=== PATIENT | male | born 1980 ===

== ENCOUNTER 2016-07-09 21:32 | Emergency (ER) | payer OTHER ==
[2016-07-09 21:33] VITALS: BMI 23.1
[2016-07-09 22:29] VITALS: TEMP 98
--- NOTE | 2016-07-09 23:25 | ED PDOC ---
Arrival/HPI - General Chief Complaint: Lower Extremity Problem/Injury Time Seen by Provider: 07/09/16 22:35 Historian: Patient - History of Present Illness Narrative History of Present Illness (Text): 07/09/16 23:18 Pt is a 36yo male who present with complaint of lateral right foot pain. states he had contusion injury at work two months ago. He was given NSAID during the injury and he had PT, and his pain improved. States he went back to work today and started having pain after standing for a while. He did not take any analgesic. Denies recent trauma, any other complaint. States he never had imaging of his foot. Past Medical History - Provider Review Nursing Documentation Reviewed: Yes - Infectious Disease Hx of Infectious Diseases: None - Tetanus Immunization Tetanus Immunization: Unknown - Psychiatric Hx Depression: No Hx Emotional Abuse: No Hx Physical Abuse: No Hx Substance Use: No - Surgical History Hx Cholecystectomy: Yes - Anesthesia Hx Anesthesia: Yes Hx Anesthesia Reactions: No Hx Malignant Hyperthermia: No - Suicidal Assessment Feels Threatened In Home Enviroment: No Family/Social History - Physician Review Nursing Documentation Reviewed: Yes Family/Social History: Unknown Family HX Smoking Status: Never Smoked Hx Alcohol Use: No Hx Substance Use: No Allergies/Home Meds Allergies/Adverse Reactions: Allergies No Known Allergies Allergy (Verified 07/09/16 22:29) Review of Systems - Physician Review All systems were reviewed & negative as marked: Yes - Review of Systems Constitutional: Normal Eyes: Normal ENT: Normal Respiratory: Normal Cardiovascular: Normal Gastrointestinal: Normal Genitourinary Male: Normal Musculoskeletal: Arthralgias (right foot pain) Skin: Normal Neurological: Normal Endocrine: Normal Hemo/Lymphatic: Normal Psychiatric: Normal Physical Exam Vital Signs Reviewed: Yes Vital Signs Temp Pulse Resp BP Pulse Ox 07/10/16 00:35 60 17 101/63 96 07/09/16 22:24 98 F 85 20 122/84 98 Temperature: Afebrile Blood Pressure: Normal Pulse: Regular Respiratory Rate: Normal Appearance: Positive for: Well-Appearing, Non-Toxic, Comfortable Pain Distress: None Mental Status: Positive for: Alert and Oriented X 3 - Systems Exam Head: Present: Atraumatic, Normocephalic Pupils: Present: PERRL Extroacular Muscles: Present: EOMI Conjunctiva: Present: Normal Mouth: Present: Moist Mucous Membranes Neck: Present: Normal Range of Motion Respiratory/Chest: Present: Clear to Auscultation, Good Air Exchange. No: Respiratory Distress, Accessory Muscle Use Cardiovascular: Present: Regular Rate and Rhythm, Normal S1, S2. No: Murmurs Abdomen: Present: Normal Bowel Sounds. No: Tenderness, Distention, Peritoneal Signs Back: Present: Normal Inspection Upper Extremity: Present: Normal Inspection. No: Cyanosis, Edema Lower Extremity: Present: NORMAL PULSES, Normal ROM, Tenderness (Focal tenderness over lateral right foot), Neurovascularly Intact. No: Edema, CALF TENDERNESS, Cyanosis, Swelling, Erythema, Deformity, Temperature Abnormalties Neurological: Present: GCS=15, CN II-XII Intact, Speech Normal Skin: Present: Warm, Dry, Normal Color. No: Rashes Psychiatric: Present: Alert, Oriented x 3, Normal Insight, Normal Concentration Medical Decision Making ED Course and Treatment: 07/10/16 01:28 Right foot xray - No acute finding Result was DW the pt. DC home with Naprosyn. 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 - RAD Interpretation Radiology Orders: 07/09/16 22:35 FOOT RIGHT 3 VIEWS ROUTINE [RAD] Stat - Medication Orders Current Medication Orders: Discontinued Medications Ketorolac Tromethamine (Toradol) 60 mg IM STAT STA Stop: 07/09/16 23:27 Last Admin: 07/09/16 23:58 Dose: 60 MG IM Administration Charges Document 07/09/16 23:58 MR (Rec: 07/09/16 23:58 [place] [facility] [id number] Injection Site MAR Injection Site Left Gluteus Hill Charges for Administration # of IM Administrations 1 Disposition/Present on Arrival - Present on Arrival Any Indicators Present on Arrival: No History of DVT/PE: No History of Uncontrolled Diabetes: No Urinary Catheter: No History of Decub. Ulcer: No History Surgical Site Infection Following: None - Disposition Have Diagnosis and Disposition been Completed?: Yes Diagnosis: Foot pain Disposition: HOME/ ROUTINE Disposition Time: 23:34 Patient Plan: Discharge Condition: STABLE Discharge Instructions (ExitCare): Arthralgia (ED) Additional Instructions: Follow up with your doctor/Payable Manager Return to ED for any new or worsening symptoms Prescriptions: Naproxen [Naprosyn] 500 mg PO BID #20 tab Referrals: Lou Melendez DPM [Staff Provider] - Follow up with primary Forms: WORK NOTE
[2016-07-10 00:36] VITALS: BP 101/63; PULSE 60; RESP 17; O2SAT 96
--- NOTE | 2016-07-10 10:29 | RAD ---
PROCEDURE: Right Foot Radiographs. HISTORY: foot pain COMPARISON: None. FINDINGS: BONES: Normal. No fracture. JOINTS: Normal. SOFT TISSUES: Normal. OTHER FINDINGS: None. IMPRESSION: Normal right foot radiographs.
== END 2016-07-10 00:36 | disposition home or self-care (01) ==
LOC: ED 21:32
DX: M79.671 Pain in right foot (principal)
CPT/HCPCS: 73630; 96372; 99284; J1885

== ENCOUNTER 2016-09-03 09:30 | Emergency (ER) | payer OTHER ==
[2016-09-03 09:38] VITALS: BMI 24.0
[2016-09-03 09:40] VITALS: TEMP 99.6; O2SAT 96
--- NOTE | 2016-09-03 10:09 | ED PDOC ---
Arrival/HPI - General Chief Complaint: Cough, Cold, Congestion Time Seen by Provider: 09/03/16 10:04 Historian: Patient - History of Present Illness Narrative History of Present Illness (Text): 09/03/16 10:06 36yr old male presents today with a 3 day history of fever and chills and a 1 day history of sore throat. denies cough. denies abdominal pain. no vomiting or diarrhea. pt states he is able to tolerate liquids but has pain with swallowing solids. pt states he took naproxen this morning for pain. no cp or sob. denies sick contacts. no other complaints. Time/Duration: Other (3 days) Symptom Onset: Gradual Symptom Course: Worsening Quality: Stabbing, Burning Severity Level: 6 Past Medical History - Provider Review Nursing Documentation Reviewed: Yes - Travel History Have you recently traveled outside [place] w/in the past 3 mons?: No - Infectious Disease Hx of Infectious Diseases: None - Tetanus Immunization Tetanus Immunization: Unknown - Psychiatric Hx Depression: No Hx Emotional Abuse: No Hx Physical Abuse: No Hx Substance Use: No - Surgical History Hx Cholecystectomy: Yes - Anesthesia Hx Anesthesia: Yes Hx Anesthesia Reactions: No Hx Malignant Hyperthermia: No - Suicidal Assessment Feels Threatened In Home Enviroment: No Family/Social History - Physician Review Nursing Documentation Reviewed: Yes Family/Social History: Unknown Family HX Smoking Status: Never Smoked Hx Alcohol Use: No Hx Substance Use: No Allergies/Home Meds Allergies/Adverse Reactions: Allergies No Known Allergies Allergy (Verified 09/03/16 09:37) Review of Systems - Review of Systems Constitutional: Fevers. absent: Fatigue ENT: Sore Throat, Sinus Congestion Respiratory: absent: SOB, Cough Cardiovascular: absent: Chest Pain, Palpitations Gastrointestinal: absent: Abdominal Pain, Diarrhea, Vomiting, Appetite Changes Genitourinary Male: absent: Dysuria, Frequency Musculoskeletal: absent: Arthralgias, Back Pain Skin: absent: Rash, Pruritis Neurological: absent: Headache, Dizziness Psychiatric: absent: Anxiety, Depression Physical Exam Vital Signs Reviewed: Yes Vital Signs Temp Pulse Resp BP Pulse Ox 09/03/16 09:39 99.6 F 107 H 19 115/71 96 Temperature: Afebrile Blood Pressure: Normal Pulse: Tachycardic Respiratory Rate: Normal Appearance: Positive for: Well-Appearing, Non-Toxic, Comfortable Pain Distress: None Mental Status: Positive for: Alert and Oriented X 3 - Systems Exam Head: Present: Atraumatic Conjunctiva: Present: Normal Ears: Present: Normal, NORMAL TM Mouth: Present: Moist Mucous Membranes Pharnyx: Present: ERYTHEMA, TONSILS ENLARGED. No: EXUDATE, Peritonsilar Swelling, Uvular Deviation, Muffled/Hoarse Voice, Strider, Soft Palate/Uvular Edema Nose (External): Present: Atraumatic Nose (Internal): Present: Normal Inspection Neck: Present: Normal Range of Motion. No: Lymphadenopathy Respiratory/Chest: Present: Clear to Auscultation, Good Air Exchange. No: Respiratory Distress, Accessory Muscle Use Cardiovascular: Present: Regular Rate and Rhythm, Normal S1, S2. No: Murmurs Neurological: Present: GCS=15, Speech Normal Skin: Present: Warm, Dry, Normal Color. No: Rashes Psychiatric: Present: Alert, Oriented x 3 Medical Decision Making ED Course and Treatment: 09/03/16 10:13 Patient is nontoxic well appearing in no distress. Vital signs are stable Tolerating p.o. fluids and solids tylenol 975mg po amoxicillin PO Decadron 10 mg IM Patient reassessment: Patient feeling better after medications, vital signs stable. Moist mucous membranes. I advised follow up with primary care physician within the next 2 days, advised to increase fluids take medications as prescribed and return if symptoms worsen persist or if new symptoms develop IMPRESSION; pharyngitis Motrin every 6 hours as needed for pain/fever reduction Increase fluids Amoxicillin 3 times daily x10 days Follow up primary care physician within the next 2 days Follow up with the ENT specialist within the next 2 days. Saltwater gargles, throat lozenges Return if symptoms worsen persist or if the symptoms develop; high fevers, increasing pain, swelling, difficulty breathing or swallowing or if any other concerning symptoms develop. - Medication Orders Current Medication Orders: Discontinued Medications Acetaminophen (Tylenol 325mg Tab) 975 mg PO STAT STA Stop: 09/03/16 10:05 Last Admin: 09/03/16 10:11 Dose: 975 mg Amoxicillin (Amoxil 500 Mg Cap) 500 mg PO STAT STA PRN Reason: Protocol Stop: 09/03/16 10:05 Last Admin: 09/03/16 10:10 Dose: 500 mg Dexamethasone (Decadron Inj) 10 mg IM STAT STA Stop: 09/03/16 10:05 Disposition/Present on Arrival - Present on Arrival Any Indicators Present on Arrival: No History of DVT/PE: No History of Uncontrolled Diabetes: No Urinary Catheter: No History of Decub. Ulcer: No History Surgical Site Infection Following: None - Disposition Have Diagnosis and Disposition been Completed?: Yes Diagnosis: Pharyngitis Disposition: HOME/ ROUTINE Disposition Time: 10:12 Patient Plan: Discharge Patient Problems: Current Active Problems Problem Status Onset Pharyngitis Acute Condition: GOOD Discharge Instructions (ExitCare): Pharyngitis (ED) Additional Instructions: Motrin every 6 hours as needed for pain/fever reduction Increase fluids Amoxicillin 3 times daily x10 days Follow up primary care physician within the next 2 days Follow up with the ENT specialist within the next 2 days. Saltwater gargles, throat lozenges Return if symptoms worsen persist or if the symptoms develop; high fevers, increasing pain, swelling, difficulty breathing or swallowing or if any other concerning symptoms develop. Prescriptions: Amoxicillin 500 mg PO TID #30 tab Ibuprofen [Motrin] 600 mg PO Q6H PRN #20 tab PRN Reason: pain/fever reduction Referrals: Adalberto Marin DO [Doctor Osteopathy] - Follow up with primary Campbell Todd MD [Staff Provider] - Follow up with primary [facility] [place] - Follow up with primary Forms: WORK NOTE
[2016-09-03 11:08] VITALS: BP 117/68; PULSE 97; RESP 18
== END 2016-09-03 11:35 | disposition home or self-care (01) ==
LOC: ED 09:30
DX: J02.9 Acute pharyngitis, unspecified (principal)
CPT/HCPCS: 96372; 99283; J1100

== ENCOUNTER 2016-10-22 09:20 | Inpatient (IN) | payer OTHER ==
[2016-10-22 09:23] VITALS: BMI 23.6
[2016-10-22] MEDS ORDERED: Sodium Chloride 0.9% 1,000 ML IV STA ×2 (09:43→10:32)
--- NOTE | 2016-10-22 09:47 | ED PDOC ---
Arrival/HPI - General Historian: Patient - History of Present Illness Time/Duration: Other (3 days) Quality: Aching Severity Level: Mild Context: Home - General Chief Complaint: Abdominal Pain Time Seen by Provider: 10/22/16 09:31 - History of Present Illness Narrative History of Present Illness (Text): 10/22/16 09:44 This 36 yo male presents to this ED c/o nausea, diarrhea, and generalized abdominal pain x 3 days. Patient also stated chills, and fever. Patient saw his pmd x 2 days ago, who recommended him to take Immodium, and to drink enough fluids. Patient has been taking Advil for pain, and Lamar, and Gatorade drinks. Denies sob, vomiting, rash, rectal bleeding, melena, hematochezia, dizziness, or abnormal gait. (Melvina Richter) Past Medical History - Provider Review Nursing Documentation Reviewed: Yes - Infectious Disease Hx of Infectious Diseases: None - Tetanus Immunization Tetanus Immunization: Unknown - Psychiatric Hx Depression: No Hx Emotional Abuse: No Hx Physical Abuse: No Hx Substance Use: No - Surgical History Hx Cholecystectomy: Yes - Anesthesia Hx Anesthesia: Yes Hx Anesthesia Reactions: No Hx Malignant Hyperthermia: No - Suicidal Assessment Feels Threatened In Home Enviroment: No Family/Social History - Physician Review Nursing Documentation Reviewed: Yes Family/Social History: No Known Family HX Smoking Status: Never Smoked Hx Alcohol Use: No Hx Substance Use: No Allergies/Home Meds Allergies/Adverse Reactions: Allergies No Known Allergies Allergy (Verified 10/22/16 09:23) Home Medications: Home Meds Medication Instructions Recorded Confirmed No Known Home Med 10/22/16 10/22/16 Review of Systems - Review of Systems Constitutional: Fevers, Other (chills). absent: Fatigue, Weight Change, Night Sweats Eyes: Normal. absent: Vision Changes ENT: Normal Respiratory: Normal. absent: SOB, Cough Cardiovascular: Normal. absent: Chest Pain, Palpitations Gastrointestinal: Normal, Abdominal Pain, Diarrhea, Nausea. absent: Constipation, Vomiting Genitourinary Male: Normal. absent: Dysuria, Frequency, Hematuria Musculoskeletal: Normal. absent: Back Pain, Neck Pain Skin: Normal. absent: Rash Neurological: Normal. absent: Headache, Dizziness Endocrine: Normal Hemo/Lymphatic: Normal Psychiatric: Normal Physical Exam Temperature: Afebrile Blood Pressure: Normal Pulse: Regular Respiratory Rate: Normal Appearance: Positive for: Well-Appearing, Non-Toxic, Comfortable Pain Distress: None Mental Status: Positive for: Alert and Oriented X 3 - Systems Exam Head: Present: Atraumatic, Normocephalic Pupils: Present: PERRL Extroacular Muscles: Present: EOMI Conjunctiva: Present: Normal Mouth: Present: Moist Mucous Membranes Neck: Present: Normal Range of Motion, Trachea Midline. No: Meningeal Signs, MIDLINE TENDERNESS, Paraspinal Tenderness, Lymphadenopathy Respiratory/Chest: Present: Clear to Auscultation, Good Air Exchange. No: Respiratory Distress, Accessory Muscle Use Cardiovascular: Present: Regular Rate and Rhythm, Normal S1, S2. No: Murmurs Abdomen: No: Tenderness, Distention, Normal Bowel Sounds (mild hyper active BS) , Peritoneal Signs, Rebound, Guarding Back: Present: Normal Inspection. No: CVA Tenderness Upper Extremity: Present: Normal Inspection, Normal ROM, NORMAL PULSES, Neurovascularly Intact, Capillary Refill < 2s. No: Cyanosis, Edema Lower Extremity: Present: Normal Inspection, NORMAL PULSES, Normal ROM, Neurovascularly Intact, Capillary Refill < 2 s. No: Edema, CALF TENDERNESS Neurological: Present: GCS=15, CN II-XII Intact, Speech Normal, Motor Func Grossly Intact, Normal Sensory Function, Normal Cerebellar Funct, Norm Deep Tendon Reflexes, Gait Normal, Memory Normal Skin: Present: Warm, Dry, Normal Color. No: Rashes Psychiatric: Present: Alert, Oriented x 3, Normal Insight, Normal Concentration Vital Signs Temp Pulse Resp BP Pulse Ox 10/22/16 15:09 66 17 112/61 99 10/22/16 14:18 76 15 105/60 99 10/22/16 12:48 63 14 108/71 99 10/22/16 12:00 76 17 117/80 99 10/22/16 10:45 78 18 115/86 98 10/22/16 09:25 97.7 F 81 19 111/72 97 Medical Decision Making Re-evaluation Time: 13:09 Reassessment Condition: Re-examined, Improving,but remains with symptoms - Lab Interpretations I have reviewed the lab results: Yes Interpretation: Abnormal lab values (bandemia) - EKG Interpretation Interpreted by ED Physician: Yes (NSR @63 bpm. Normal interval) Type: 12 lead EKG Comparison: No previous EKG avail. ED Course and Treatment: I was available for consultation during PA evaluation. The chart was reviewed by me, and I agree with disposition. The documented history was done by the physician optical lens manufacturing tech. The documented physical exam was done by the physician optical lens manufacturing tech. The documented procedures were done by the physician optical lens manufacturing tech. (Merlin Taylor) 10/22/16 13:08 Patient continues with intractable abdominal pain. I am recommending admission for extensive colitis, abnormal labs, and intractable abdominal pain. Patient agrees with plan. 10/22/16 13:[address] Valles regarding labs, and ct scan report, and intractable abdominal pain. She agrees with admission (Melvina Richter) - Lab Interpretations Microbiology Results: Microbiology Results 10/22/16 12:30 Blood Blood Culture - Preliminary NO GROWTH AFTER 24 HOURS 10/22/16 13:00 Blood Blood Culture - Preliminary NO GROWTH AFTER 24 HOURS Lab Results: 10/22/16 09:57 10/22/16 09:57 Lab Results 10/22/16 13:00: pO2 135 H, VBG pH 7.37, VBG pCO2 39.0 L, VBG HCO3 22.5, VBG Total CO2 23.7, VBG O2 Sat (Calc) 99.3 H, VBG Base Excess -2.5 L, VBG Potassium 3.7, Glucose 98, Lactate 0.6 L, FiO2 21.0, Sodium 136.0, Chloride 109.0 H, Venous Blood Potassium 3.7 10/22/16 09:57: Sodium 139, Potassium 3.7, Chloride 105, Carbon Dioxide 23, Anion Gap 15, BUN 11, Creatinine 0.9, Est GFR ( Amer) > 60, Est GFR (Non- Af Amer) > 60, Random Glucose 106, Calcium 9.2, Total Bilirubin 0.8, AST 49, ALT 66 H, Alkaline Phosphatase 91, Total Protein 7.2, Albumin 3.8, Globulin 3.4 , Albumin/Globulin Ratio 1.1, Lipase 49 10/22/16 09:57: WBC 5.9, RBC 4.88, Hgb 14.8, Hct 42.6, MCV 87.3, MCH 30.3, MCHC 34.7, RDW 12.9, Plt Count 204, MPV 10.2, Gran % Glue Mounter Operator, Lymph % (Auto) Glue Mounter Operator, Dukes % ( Auto) Glue Mounter Operator, Eos % (Auto) Glue Mounter Operator, Baso % (Auto) Glue Mounter Operator, Gran # Glue Mounter Operator, Lymph # Glue Mounter Operator, Dukes # Glue Mounter Operator, Eos # Glue Mounter Operator, Baso # Glue Mounter Operator, Neutrophils % (Manual) 49 L, Band Neutrophils % 26 H*, Lymphocytes % (Manual) 17 L, Monocytes % (Manual) 8 H, Platelet Evaluation Normal - RAD Interpretation Radiology Orders: 10/22/16 11:26 ABD & PELVIS IV CONTRAST ONLY [CT] Stat 10/22/16 13:58 CHEST PORTABLE [RAD] Stat - Medication Orders Current Medication Orders: Hydromorphone HCl (Dilaudid) 1 mg IVP Q4H PRN PRN Reason: Pain, severe (8-10) Metronidazole (Flagyl) 500 mg in 100 mls @ 100 mls/hr IVPB Q8 ERYN PRN Reason: Protocol Last Admin: 10/23/16 14:40 Dose: 100 mls/hr Sodium Chloride (Sodium Chloride 0.9%) 1,000 mls @ 125 mls/hr IV .Q8H [facility] Last Admin: 10/23/16 14:37 Dose: 125 mls/hr Ceftriaxone Sodium (Rocephin 1 Gram Ivpb) 1 gm in 100 mls @ 100 mls/hr IVPB DAILY [facility] PRN Reason: Protocol Stop: 10/25/16 23:59 Last Admin: 10/23/16 09:24 Dose: 100 mls/hr Ondansetron HCl (Zofran Inj) 4 mg IVP Q4 PRN PRN Reason: Nausea/Vomiting Pantoprazole Sodium (Protonix Ec Tab) 40 mg PO 0600 ERYN Last Admin: 10/23/16 05:08 Dose: 40 mg Simethicone (Mylicon Chew Tab) 80 mg PO [facility] PRN PRN Reason: GI distress Last Admin: 10/23/16 17:29 Dose: 80 mg Discontinued Medications Famotidine (Pepcid) 20 mg IVP STAT STA Stop: 10/22/16 09:44 Last Admin: 10/22/16 09:56 Dose: 20 mg Hydromorphone HCl (Dilaudid) 1 mg IVP STAT STA Stop: 10/22/16 13:07 Last Admin: 10/22/16 14:19 Dose: 1 mg Hydromorphone HCl (Dilaudid) 1 mg IVP STAT STA Stop: 10/23/16 17:23 Last Admin: 10/23/16 17:26 Dose: 1 mg Sodium Chloride (Sodium Chloride 0.9%) 1,000 mls @ 1,000 mls/hr IV .Q1H STA Stop: 10/22/16 10:42 Last Admin: 10/22/16 09:57 Dose: 1,000 mls/hr Sodium Chloride (Sodium Chloride 0.9%) 1,000 mls @ 999 mls/hr IV .Q1H1M STA Stop: 10/22/16 11:32 Last Admin: 10/22/16 10:40 Dose: 999 mls/hr Ciprofloxacin (Cipro 400mg/200ml Dsw) 400 mg in 200 mls @ 133.3 mls/hr IVPB STAT STA PRN Reason: Protocol Stop: 10/22/16 14:37 Last Admin: 10/22/16 15:23 Dose: 133.3 mls/hr Metronidazole (Flagyl) 500 mg in 100 mls @ 100 mls/hr IVPB STAT STA PRN Reason: Protocol Stop: 10/22/16 14:06 Last Admin: 10/22/16 14:21 Dose: 100 mls/hr Ciprofloxacin (Cipro 400mg/200ml Dsw) 400 mg in 200 mls @ 133.3 mls/hr IVPB Q12 ERYN PRN Reason: Protocol Stop: 10/22/16 23:31 Last Admin: 10/22/16 21:12 Dose: 133.3 mls/hr Iohexol (Omnipaque 350 100 Ml) Confirm Administered Dose 350 mg .ROUTE .STK-MED ONE Stop: 10/22/16 11:38 Morphine Sulfate (Morphine) 2 mg IVP STAT STA Stop: 10/22/16 10:33 Last Admin: 10/22/16 10:48 Dose: 2 mg Morphine Sulfate (Morphine) 4 mg IVP STAT STA Stop: 10/22/16 12:31 Last Admin: 10/22/16 12:49 Dose: 4 mg Morphine Sulfate (Morphine) 2 mg IVP Q4 PRN PRN Reason: Pain, severe (8-10) Last Admin: 10/23/16 14:32 Dose: 2 mg Morphine Sulfate (Morphine) 1 mg IVP STAT STA Stop: 10/22/16 20:47 Last Admin: 10/22/16 21:12 Dose: 1 mg Re-Assess: [facility] Pain Assessment Document 10/22/16 22:12 BN (Rec: 10/22/16 23:05 BN [email or web address]) Pain Reassessment Is this a pain reassessment? Yes Sleep Is patient sleeping during reassessment? Yes Morphine Sulfate (Morphine) 2 mg IVP ONCE ONE Stop: 10/23/16 11:03 Last Admin: 10/23/16 11:07 Dose: 2 mg Re-Assess: [facility] Pain Assessment Document 10/23/16 12:07 MLK (Rec: 10/23/16 12:20 [id number]) Pain Reassessment Is this a pain reassessment? Yes Sleep Is patient sleeping during reassessment? Yes Ondansetron HCl (Zofran Inj) 4 mg IVP STAT STA Stop: 10/22/16 09:44 Last Admin: 10/22/16 09:56 Dose: 4 mg Pneumococcal Polyvalent Vaccine (Pneumovax 23 Vaccine) 0.5 ml IM .ONCE ONE Stop: 10/22/16 18:40 Disposition/Present on Arrival - Present on Arrival Any Indicators Present on Arrival: No History of DVT/PE: No History of Uncontrolled Diabetes: No Urinary Catheter: No History of Decub. Ulcer: No History Surgical Site Infection Following: None - Disposition Have Diagnosis and Disposition been Completed?: Yes Disposition Time: 13:10 Patient Plan: Admission - Disposition Diagnosis: Pancolitis, Bandemia, Intractable abdominal pain Disposition: HOSPITALIZED Patient Problems: Current Active Problems Problem Status Onset Bandemia Acute Intractable abdominal pain Acute Pancolitis Acute Condition: GOOD
[2016-10-22 10:12] LABS: HEMOGLOBIN 14.8 gm/dL (14.0-18.0); MEAN CELL VOLUME 87.3 fL (80.0-105.0); MEAN CORPUSCULAR HEMOGLOBIN 30.3 pg (25.0-35.0); MEAN CORPUSCULAR HGB CONC 34.7 g/dl (31.0-37.0); MEAN PLATELET VOLUME 10.2 fl (7.0-11.0); PLATELET COUNT 204 10^3/uL (120.0-450.0); RBC 4.88 10^6/uL (3.5-6.1); RED CELL DISTRIBUTION WIDTH 12.9 % (11.5-14.5); WHITE BLOOD COUNT 5.9 10^3/ul (4.5-11.0)
[2016-10-22 10:13] LABS: ALB/GLOB RATIO 1.1 (1.1-1.8); ALBUMIN 3.8 g/dL (3.0-4.8); ALT/SGPT 66 U/L (7-56); AST/SGOT 49 U/L (15-59); BLOOD UREA NITROGEN 11 mg/dL (7-21); CALCIUM 9.2 mg/dL (8.4-10.5); GFR AFRICAN-AMERICAN > 60; GFR NON-AFRICAN AMERICAN > 60; LIPASE 49 U/L (23-300)
[2016-10-22] MEDS ORDERED: Morphine 2 mg/ml ISec IVP STA ×2 (10:32→20:46)
[2016-10-22] MEDS ORDERED: Iohexol 350 MG/100 ML VIAL ONE (11:37)
[2016-10-22 12:08] LABS: LYMPHOCYTE 17 % (22.0-35.0); MONOCYTE 8 % (1.0-6.0); NEUTROPHIL 49 % (50.0-70.0); PLATELET ESTIMATE NORMAL (NORMAL)
[2016-10-22 12:09] LABS: BAND 26 % (0-2)
[2016-10-22] MEDS ORDERED: Morphine 4 mg/ml ISec IVP STA (12:30)
--- NOTE | 2016-10-22 12:38 | CT ---
PROCEDURE: CT Abdomen and Pelvis with contrast HISTORY: el-umbilical abdominal pain COMPARISON: None. TECHNIQUE: Contrast dose: Omnipaque 350, 97 Radiation dose: Total exam DLP = 289 mGy-cm. This CT exam was performed using one or more of the following dose reduction techniques: Automated exposure control, adjustment of the mA and/or kV according to patient size, and/or use of iterative reconstruction technique. FINDINGS: LOWER THORAX: Unremarkable. LIVER: Unremarkable. Mild periportal edema noted. No gross lesion or ductal dilatation. GALLBLADDER AND BILE DUCTS: Prior cholecystectomy again evident without suspicious biliary tract dilatation. Mild periportal edema is identified in the liver however. . PANCREAS: Unremarkable. No gross lesion or ductal dilatation. SPLEEN: Unremarkable. ADRENALS: Unremarkable. No mass. KIDNEYS AND URETERS: Unremarkable. No hydronephrosis. No solid mass. VASCULATURE: Unremarkable. No aortic aneurysm. BOWEL: There is marked mural thickening of the cecum and ascending colon with [id number] pericecal lymphadenopathy but a normal appearing terminal ileum and appendix. Mural thickening continues into the transverse and descending colon segments questionable sparing of the sigmoid colon. Retained fecal multi material obscures the rectum. The findings are most by with extensive segmental colitis. Consider infectious or inflammatory causes though ischemia and neoplasm not completely excluded. Further clinical correlation is advised. . No obstruction. Small bowel appears unremarkable. APPENDIX: Normal appendix. PERITONEUM: Unremarkable. No free fluid. No free air. LYMPH NODES: Unremarkable. No enlarged lymph nodes. BLADDER: Unremarkable. REPRODUCTIVE: Unremarkable. BONES: No acute fracture. OTHER FINDINGS: None. IMPRESSION: 1. Findings suggestive of extensive segmental colitis affecting the majority colon but apparent sparing of the rectosigmoid segment. Please see differential diagnosis above. No abscess or free air. Trace fluid is seen in the pelvis. 2. Prior cholecystectomy. 3. Periportal edema identified.
[2016-10-22] MEDS ORDERED: HYDROmorphone 1 mg/ml ISec IVP STA (13:06)
[2016-10-22] MEDS ORDERED: Ciprofloxacin 400mg/200ml D5W 400 MG/200 ML BAG IVPB STA (13:07)
[2016-10-22] MEDS ORDERED: metroNIDAZOLE IV 500 mg/100 ml 500 MG/100 ML BAG IVPB STA (13:07)
[2016-10-22 13:22] LABS: VENOUS BLOOD GAS BASE EXCESS -2.5 mmol/L (0.0-2.0); VENOUS BLOOD GAS PO2 135 mm/Hg (30-55); VENOUS BLOOD PH 7.37 (7.32-7.43)
[2016-10-22 14:56] LABS: INR 1.11 (0.93-1.08); PARTIAL THROMBOPLASTIN TIME 34.1 Seconds (23.7-30.8)
--- NOTE | 2016-10-22 15:24 | RAD ---
HISTORY: admission COMPARISON: No prior. FINDINGS: LUNGS: No active pulmonary disease. PLEURA: No significant pleural effusion identified, no pneumothorax apparent. CARDIOVASCULAR: Normal. OSSEOUS STRUCTURES: No significant abnormalities. VISUALIZED UPPER ABDOMEN: Normal. OTHER FINDINGS: None. IMPRESSION: No active disease.
[2016-10-22] MEDS: Sodium Chloride 0.9% 1,000 ML IV SCH (17:03)
[2016-10-22] MEDS ORDERED: Pneumococcal 23-Valent Vaccine IM ONE (18:39)
[2016-10-22] MEDS: Morphine 2 mg/ml ISec IVP PRN (19:51)
--- NOTE | 2016-10-22 20:45 | CP.PCM.HP ---
History of Present Illness - History of Present Illness History of Present Illness: Chief Complaint: abdominal pain with associated diarrhea for three days HPI: Mr. Hill is a 36 year old male with no significant past medical history presented with fever, nausea, diarrhea, and generalized abdominal pain with a duration of three days. Patient describes pain as being localized el- umbilically with minimal tenderness in LLQ. Patient also stated that he experienced fever, with a Tmax of 103 on Wednesday evening, and sporadic chills. Patient saw his primary care physician two days ago who recommended he take immodium and have adequate fluid intake to maintain hydration status. Patient has been taking Advil and roberto at home for pain. He denies recent travel, dizziness, changes in vision, chest pain, shortness of breath, vomiting , hematochezia, melena, rectal bleeding, rash, or abnormal gait. PMH: none PSHX: Cholecsytectomy ("10 years ago") Family History: No history of any cancers; both parents with DM Medications: None Social History: Denies tobacco, alcohol or elicit drug use; works in [employer] at [employer] Present on Admission - Present on Admission Any Indicators Present on Admission: No Review of Systems - Review of Systems Review of Systems: refer to HPI Past Patient History - Infectious Disease Hx of Infectious Diseases: None - Tetanus Immunizations Tetanus Immunization: Unknown - Past Social History Smoking Status: Never Smoked - MUSCULOSKELETAL/RHEUMATOLOGICAL Hx Falls: No - PSYCHIATRIC Hx Substance Use: No - SURGICAL HISTORY Hx Amputation: Yes Hx Cholecystectomy: Yes (10 yrs ago) Other/Comment: left 4th finger partial amputation work related 20 yrs ago - ANESTHESIA Hx Anesthesia: Yes Hx Anesthesia Reactions: No Hx Malignant Hyperthermia: No Meds Allergies/Adverse Reactions: Allergies Allergy/AdvReac Type Severity Reaction Status Date / Time No Known Allergies Allergy Verified 10/22/16 09:23 Physical Exam - Constitutional Appears: No Acute Distress - Head Exam Head Exam: NORMAL INSPECTION, NORMOCEPHALIC - Eye Exam Eye Exam: EOMI, Normal appearance. absent: Conjunctival injection, Periorbital swelling - ENT Exam ENT Exam: Mucous Membranes Dry. absent: Mucous Membranes Moist, Normal Exam - Neck Exam Neck exam: Positive for: Full Rom. Negative for: Lymphadenopathy - Respiratory Exam Respiratory Exam: Clear to Auscultation Bilateral, NORMAL BREATHING PATTERN. absent: Rales, Rhonchi, Wheezes, Respiratory Distress, Stridor - Cardiovascular Exam Cardiovascular Exam: REGULAR RHYTHM, RRR, +S1, +S2. absent: Bradycardia, Tachycardia, Irregular Rhythm, Systolic Murmur - GI/Abdominal Exam GI & Abdominal Exam: Normal Bowel Sounds, Tenderness. absent: Distended, Firm, Guarding Additional comments: periumbilical and LLQ TTP - Extremities Exam Extremities exam: Negative for: calf tenderness, pedal edema - Neurological Exam Neurological exam: Alert, Oriented x3 - Psychiatric Exam Psychiatric exam: Normal Affect, Normal Mood - Skin Skin Exam: Dry, Intact, Normal Color, Warm Results - Vital Signs Recent Vital Signs: Last Vital Signs Temp 97.7 F 10/22/16 16:00 Pulse 66 10/22/16 18:28 Resp 17 10/22/16 18:28 BP 112/61 10/22/16 18:28 Pulse Ox 98 10/22/16 16:00 - Labs Result Diagrams: 10/22/16 09:57 10/22/16 09:57 Labs: Laboratory Results - last 24 hr 10/22/16 14:40 PT 12.0 H INR 1.11 H APTT 34.1 H Assessment & Plan - Assessment and Plan (Free Text) Assessment: Mr. Hill is a 36 year old male with no significant past medical history presented with fever, nausea, diarrhea, and generalized abdominal pain with a duration of three days. Plan: 1. Extensive Segmental Colitis -CT abd/pelv showed findings suggestive of extensive segmental colitis affecting majority of colon but sparing rectosigmoid segment; consider infectious or inflammatory though ischemia and malignancy cannot be ruled out -started on cipro/flagyl -IVF: NS at 125mls/hr -morphine for pain control -pepcid, zofran, protonix -NPO diet -freedmna stool cultures collected; awaiting results -will monitor vital signs, daily CBC/CMP's -GI consulted, all recommendations appreciated 2. GI/DVT Prophylaxis -protonix/scd's Patient seen and case discussed in detail with attending, Dr. Bailey. - Date & Time Date: 10/22/16 Time: 20:57
[2016-10-22] MEDS ORDERED: Ciprofloxacin 400mg/200ml D5W 400 MG/200 ML BAG IVPB SCH (22:00)
[2016-10-22] MEDS: metroNIDAZOLE IV 500 mg/100 ml 500 MG/100 ML BAG IVPB SCH (23:04)
[2016-10-23] MEDS: Morphine 2 mg/ml ISec IVP PRN ×4 (02:51→14:32)
[2016-10-23] MEDS: Sodium Chloride 0.9% 1,000 ML IV SCH ×4 (03:41→23:37)
[2016-10-23] MEDS: metroNIDAZOLE IV 500 mg/100 ml 500 MG/100 ML BAG IVPB SCH ×3 (05:07→21:45)
[2016-10-23] MEDS: Pantoprazole 40 mg EC Tab PO SCH (05:08)
[2016-10-23 06:27] LABS: BASO # 0.02 K/mm3 (0.0-2.0); BASO % 0.4 % (0.0-3.0); EOS % 0.2 % (1.5-5.0); GRAN # 3.42 (1.4-6.5); GRAN % 68.6 % (50.0-68.0); HEMOGLOBIN 12.7 gm/dL (14.0-18.0); LYMPH # 0.9 (1.2-3.4); LYMPH % 17.5 % (22.0-35.0); MEAN CELL VOLUME 86.4 fL (80.0-105.0); MEAN CORPUSCULAR HEMOGLOBIN 29.9 pg (25.0-35.0); MEAN CORPUSCULAR HGB CONC 34.6 g/dl (31.0-37.0); MONO # 0.7 (0.1-0.6); MONO % 13.3 % (1.0-6.0); PLATELET COUNT 185 10^3/uL (120.0-450.0); RBC 4.25 10^6/uL (3.5-6.1); RED CELL DISTRIBUTION WIDTH 12.7 % (11.5-14.5)
[2016-10-23 07:18] LABS: ALT/SGPT 43 U/L (7-56); AST/SGOT 27 U/L (15-59); BLOOD UREA NITROGEN 10 mg/dL (7-21); CALCIUM 8.1 mg/dL (8.4-10.5); GFR AFRICAN-AMERICAN > 60; GFR NON-AFRICAN AMERICAN > 60
[2016-10-23] MEDS: cefTRIAXone 1 gm 1 GM/100 ML BAG IVPB SCH (09:24)
[2016-10-23] MEDS: Simethicone 80 mg Chewtab PO PRN ×2 (10:08→17:29)
[2016-10-23] MEDS ORDERED: Morphine 2 mg/ml ISec IVP ONE (11:02)
--- NOTE | 2016-10-23 15:50 | CON ---
DATE: 10/23/2016 HISTORY OF PRESENT ILLNESS: I saw Mr. Hill this morning. He is a 36-year-old male admitted with complaints of nausea, vomiting, diarrhea and diffuse abdominal pain for several days, indicated that the discomfort and diarrhea initiated somewhere in the range of Wednesday after eating a meal. He has been taking Advil periodically subsequent to that. He had seen his family doctor who advised Imodium, but symptoms did not annalisa. He had a fever earlier of over 100. The patient denied any gross hematemesis or gross rectal bleeding. He denied any prior episodes of colitis or any significant GI history in the past. PHYSICAL EXAMINATION: VITAL SIGNS: I reviewed this patient's vital signs. HEENT: Significant for dry mouth. HEART: Regular rhythm. LUNGS: Clear to auscultation. ABDOMEN: Significant for being mildly protuberant. He has been tender in area of the periumbilical *------* all quadrants, left lower quadrant, more in the right side than left. Bowel sounds were regular. LABORATORY DATA: White count 5.9 with H and H of 14 and 42. Normal INR. Chemistry noncontributory except for mild elevation of ALT at 66, also mild elevation of AST at 49, the rest noncontributory. I reviewed CT images and also report. CT is significant for thickening of the proximal colon including cecum, ascending, and transverse. There is some stool distally in the colon. Small bowel apparently does not involve with this. He apparently had a cholecystectomy. ASSESSMENT: He is a 36-year-old male admitted with complaints of nausea, vomiting, abdominal pain, diarrhea new onset possibly related to a gastroenteritis. He has no history of inflammatory bowel disease. REVIEW OF ORDERS: Indicate the patient is on pantoprazole, was given intermittent doses of analgesic. He did receive one dose of Cipro and metronidazole in the emergency room. Cipro apparently was discontinued. The patient needs another antibiotic combo, consider either Rocephin or Levaquin. Laboratory data is pending. Kris Lacey DO
--- NOTE | 2016-10-23 16:34 | CARD ---
APPROVED REPORT EKG Measurement Heart [id number] <Conclusion> Normal sinus rhythm Normal ECG
[2016-10-23] MEDS ORDERED: Morphine 4 mg/ml ISec IVP PRN (17:07)
[2016-10-23] MEDS ORDERED: HYDROmorphone 1 mg/ml ISec IVP STA (17:22)
[2016-10-23] MEDS: HYDROmorphone 1 mg/ml ISec IVP PRN (21:36)
--- NOTE | 2016-10-23 22:08 | CP.PCM.PN ---
Subjective - Date & Time of Evaluation Date of Evaluation: 10/23/16 Time of Evaluation: 07:30 - Subjective Subjective: Medicine Progress Note: Pt seen and assessed at bedside. Pt continues to complain of abdominal pain, localized to his lower left and right quadrants. He describes the pain as the same thing he feels when he has "gas" or when he gets "bloated". There are no alleviating or aggravating factors, pet pt. Pt denies fever, headache, dizziness , chest pain, shortness of breath, vomiting, diarrhea, or painful urination. Objective - Vital Signs/Intake and Output Vital Signs (last 24 hours): Temp Pulse Resp BP Pulse Ox 97.8 F 60 18 93/58 L 97 10/23/16 16:00 10/23/16 16:00 10/23/16 16:00 10/23/16 16:00 10/23/16 16:00 Intake and Output: 10/23/16 10/24/16 18:59 06:59 Intake Total 480 Balance 480 - Medications Medications: Current Medications Hydromorphone HCl (Dilaudid) 1 mg IVP Q4H PRN PRN Reason: Pain, severe (8-10) Last Admin: 10/23/16 21:36 Dose: 1 mg Metronidazole (Flagyl) 500 mg in 100 mls @ 100 mls/hr IVPB Q8 ERYN PRN Reason: Protocol Last Admin: 10/23/16 21:45 Dose: 100 mls/hr Sodium Chloride (Sodium Chloride 0.9%) 1,000 mls @ 125 mls/hr IV .Q8H [facility] Last Admin: 10/23/16 14:37 Dose: 125 mls/hr Ceftriaxone Sodium (Rocephin 1 Gram Ivpb) 1 gm in 100 mls @ 100 mls/hr IVPB DAILY [facility] PRN Reason: Protocol Stop: 10/25/16 23:59 Last Admin: 10/23/16 09:24 Dose: 100 mls/hr Ondansetron HCl (Zofran Inj) 4 mg IVP Q4 PRN PRN Reason: Nausea/Vomiting Pantoprazole Sodium (Protonix Ec Tab) 40 mg PO 0600 [facility] Last Admin: 10/23/16 05:08 Dose: 40 mg Simethicone (Mylicon Chew Tab) [address] [facility] PRN PRN Reason: GI distress Last Admin: 10/23/16 17:29 Dose: 80 mg - Labs Labs: 10/23/16 06:00 10/23/16 06:00 PT 12.0 Seconds (9.9-11.8) H 10/22/16 14:40 INR 1.11 (0.93-1.08) H 10/22/16 14:40 APTT 34.1 Seconds (23.7-30.8) H 10/22/16 14:40 - Constitutional Appears: No Acute Distress - Head Exam Head Exam: NORMAL INSPECTION, NORMOCEPHALIC - Eye Exam Eye Exam: EOMI, Normal appearance - ENT Exam ENT Exam: Mucous Membranes Dry - Neck Exam Neck Exam: Full ROM - Respiratory Exam Respiratory Exam: Clear to Ausculation Bilateral, NORMAL BREATHING PATTERN. absent: Rales, Rhonchi, Wheezes, Respiratory Distress - Cardiovascular Exam Cardiovascular Exam: REGULAR RHYTHM, RRR, +S1, +S2. absent: Murmur - GI/Abdominal Exam GI & Abdominal Exam: Tenderness. absent: Distended, Guarding, Hernia Additional comments: LLQ and RLQ tenderness to palpation - Extremities Exam Extremities Exam: absent: Calf Tenderness, Pedal Edema - Neurological Exam Neurological Exam: Alert, Awake, Oriented x3 - Psychiatric Exam Psychiatric exam: Normal Affect, Normal Mood - Skin Skin Exam: Dry, Intact, Normal Color, Warm Assessment and Plan - Assessment and Plan (Free Text) Assessment: Mr. Hill is a 36 year old male with no significant past medical history presented with fever, nausea, diarrhea, and generalized abdominal pain with a duration of three days. Plan: 1. Extensive Segmental Colitis -CT abd/pelv showed findings suggestive of extensive segmental colitis affecting majority of colon but sparing rectosigmoid segment; consider infectious or inflammatory though ischemia and malignancy cannot be ruled out -started on cipro/flagyl and then changed to rocephin/flagyl, per GI -IVF: NS at 125mls/hr -morphine and dilaudid for pain control -pepcid, zofran, protonix -CLD diet -freedman stool cultures collected; stool leukocytes were positive -will monitor vital signs, daily CBC/CMP's -GI consulted, all recommendations appreciated 2. GI/DVT Prophylaxis -protonix/scd's Patient seen and case discussed in detail with attending, Dr. Bailey.
[2016-10-24] MEDS: HYDROmorphone 1 mg/ml ISec IVP PRN ×6 (01:30→22:44)
[2016-10-24] MEDS: Pantoprazole 40 mg EC Tab PO SCH (05:57)
[2016-10-24] MEDS: metroNIDAZOLE IV 500 mg/100 ml 500 MG/100 ML BAG IVPB SCH ×3 (06:10→21:16)
--- NOTE | 2016-10-24 07:00 | PN ---
DATE: 10/24/2016 SUBJECTIVE: I saw this patient this morning. He is a 36-year-old male here with complaints of nausea, vomiting, abdominal pain, diarrhea. The patient made progress on the current regimen indicating the pain is less, the diarrhea is less, nausea is less as well. He is handling small volumes clears without problems. He indicated that the pain distribution has changed, initially it was extremely diffuse, now only located in the periumbilical and the left lower quadrant. He denied hematemesis or rectal bleeding. PHYSICAL EXAMINATION: VITAL SIGNS: I reviewed this patient's vital signs. HEENT: Noncontributory. LUNGS: Clear to auscultation. HEART: Regular rhythm. ABDOMEN: Significant for being mildly protuberant. The tenderness in the right lower quadrant has dissipated. He is somewhat tender in area above the umbilicus, left upper quadrant, left periumbilical and left lower quadrants. Palpation of the periumbilical area reveals some discomfort in the left lower quadrant. LABORATORY DATA: I reviewed this patient's laboratory data from yesterday. OVERALL ASSESSMENT: This is a 36-year-old male with complaints of nausea and vomiting, abdominal pain with an abnormal CT scan. It has improved with the therapeutic regimen over the past 24 hours, but the discomfort is currently in the left lower quadrant. Initially, the pain was diffuse, now seems to become more localized. The patient is consuming small volume liquids; therefore, we would continue with the current regimen. At this point in time, the patient is on Dilaudid one every four hours plus ceftriaxone and metronidazole. *------* and because of his recurrent nausea issue I was hesitant to order Levaquin in view of the reaction with Zofran which can produce *------*. He seems to be doing okay on ceftriaxone, metronidazole at the current time in point. It would be interested to see what a followup CT would show on this patient in the next day or so. Kris Lacey DO
[2016-10-24 07:22] LABS: BASO # 0.02 K/mm3 (0.0-2.0); BASO % 0.2 % (0.0-3.0); EOS % 0.2 % (1.5-5.0); GRAN # 7.55 (1.4-6.5); HEMOGLOBIN 13.7 gm/dL (14.0-18.0); LYMPH # 1.1 (1.2-3.4); LYMPH % 10.9 % (22.0-35.0); MEAN CELL VOLUME 85.3 fL (80.0-105.0); MEAN CORPUSCULAR HEMOGLOBIN 30.4 pg (25.0-35.0); MEAN CORPUSCULAR HGB CONC 35.7 g/dl (31.0-37.0); MONO % 10.7 % (1.0-6.0); PLATELET COUNT 246 10^3/uL (120.0-450.0); RED CELL DISTRIBUTION WIDTH 12.5 % (11.5-14.5); WHITE BLOOD COUNT 9.7 10^3/ul (4.5-11.0)
[2016-10-24 07:43] LABS: ALB/GLOB RATIO 1.1 (1.1-1.8); ALBUMIN 3.2 g/dL (3.0-4.8); ALT/SGPT 37 U/L (7-56); AST/SGOT 24 U/L (15-59); BLOOD UREA NITROGEN 11 mg/dL (7-21); CALCIUM 8.4 mg/dL (8.4-10.5); GFR AFRICAN-AMERICAN > 60; GFR NON-AFRICAN AMERICAN > 60
[2016-10-24] MEDS: cefTRIAXone 1 gm 1 GM/100 ML BAG IVPB SCH (09:43)
[2016-10-24] MEDS: Simethicone 80 mg Chewtab PO PRN (09:43)
--- NOTE | 2016-10-24 11:29 | CP.PCM.PN ---
<ANTONY GARCIA - Last Filed: 10/24/16 13:14> Subjective - Date & Time of Evaluation Date of Evaluation: 10/24/16 Time of Evaluation: 09:00 - Subjective Subjective: Medicine Progress Note: Pt seen and assessed at bedside. Pt states that his gaseous and bloating like pain is better today and that his overall pain level has improved. He reports that his stools are getting more firm as well. Pt denies fever, headache, dizziness, chest pain, shortness of breath, vomiting, diarrhea, or painful urination. Objective - Vital Signs/Intake and Output Vital Signs (last 24 hours): Temp Pulse Resp BP Pulse Ox 98.7 F 65 20 120/73 96 10/24/16 06:00 10/24/16 06:00 10/24/16 06:00 10/24/16 06:00 10/24/16 06:00 Intake and Output: 10/24/16 10/24/16 06:59 18:59 Intake Total 2160 Balance 2160 - Medications Medications: Current Medications Hydromorphone HCl (Dilaudid) 1 mg IVP Q4H PRN PRN Reason: Pain, severe (8-10) Last Admin: 10/24/16 09:43 Dose: 1 mg Metronidazole (Flagyl) 500 mg in 100 mls @ 100 mls/hr IVPB Q8 ERYN PRN Reason: Protocol Last Admin: 10/24/16 06:10 Dose: 100 mls/hr Sodium Chloride (Sodium Chloride 0.9%) 1,000 mls @ 125 mls/hr IV .Q8H [facility] Last Admin: 10/23/16 23:37 Dose: 125 mls/hr Ceftriaxone Sodium (Rocephin 1 Gram Ivpb) 1 gm in 100 mls @ 100 mls/hr IVPB DAILY [facility] PRN Reason: Protocol Stop: 10/25/16 23:59 Last Admin: 10/24/16 09:43 Dose: 100 mls/hr Ondansetron HCl (Zofran Inj) 4 mg IVP Q4 PRN PRN Reason: Nausea/Vomiting Pantoprazole Sodium (Protonix Ec Tab) 40 mg PO 0600 [facility] Last Admin: 10/24/16 05:57 Dose: 40 mg Simethicone (Mylicon Chew Tab) 80 mg PO [facility] PRN PRN Reason: GI distress Last Admin: 10/24/16 09:43 Dose: 80 mg - Labs Labs: 10/24/16 06:30 10/24/16 06:30 PT 12.0 Seconds (9.9-11.8) H 10/22/16 14:40 INR 1.11 (0.93-1.08) H 10/22/16 14:40 APTT 34.1 Seconds (23.7-30.8) H 10/22/16 14:40 - Constitutional Appears: No Acute Distress - Head Exam Head Exam: NORMAL INSPECTION - Eye Exam Eye Exam: EOMI, Normal appearance - ENT Exam ENT Exam: Mucous Membranes Moist, Normal Exam - Neck Exam Neck Exam: Full ROM. absent: Lymphadenopathy - Respiratory Exam Respiratory Exam: Clear to Ausculation Bilateral, NORMAL BREATHING PATTERN. absent: Rales, Rhonchi, Wheezes, Respiratory Distress - Cardiovascular Exam Cardiovascular Exam: REGULAR RHYTHM, +S1, +S2. absent: Murmur - GI/Abdominal Exam GI & Abdominal Exam: Normal Bowel Sounds. absent: Distended, Firm, Tenderness - Extremities Exam Extremities Exam: Full ROM. absent: Calf Tenderness, Joint Swelling, Pedal Edema - Neurological Exam Neurological Exam: Alert, Awake, Normal Gait, Oriented x3 - Psychiatric Exam Psychiatric exam: Normal Affect, Normal Mood - Skin Skin Exam: Dry, Intact, Normal Color, Warm Assessment and Plan - Assessment and Plan (Free Text) Assessment: Mr. Hill is a 36 year old male with no significant past medical history presented with fever, nausea, diarrhea, and generalized abdominal pain. Plan: 1. Extensive Segmental Colitis -CT abd/pelv showed findings suggestive of extensive segmental colitis affecting majority of colon but sparing rectosigmoid segment; consider infectious or inflammatory though ischemia and malignancy cannot be ruled out -cont rocephin/flagyl, per GI -IVF: NS at 125mls/hr -morphine and dilaudid for pain control -pepcid, zofran, protonix -CLD diet -freedman stool cultures collected; stool leukocytes were positive -blood cultures negative for 24 hours -will monitor vital signs, daily CBC/CMP's -GI consulted, all recommendations appreciated 2. GI/DVT Prophylaxis -protonix/scd's Patient seen and case discussed in detail with attending, Dr. Jovel. <Romeo Jovel - Last Filed: 10/24/16 17:32> Objective - Vital Signs/Intake and Output Vital Signs (last 24 hours): Temp Pulse Resp BP Pulse Ox 98.7 F 65 20 120/73 96 10/24/16 06:00 10/24/16 06:00 10/24/16 06:00 10/24/16 06:00 10/24/16 06:00 Intake and Output: 10/24/16 10/24/16 06:59 18:59 Intake Total 2160 Balance 2160 - Medications Medications: Current Medications Hydromorphone HCl (Dilaudid) 1 mg IVP Q4H PRN PRN Reason: Pain, severe (8-10) Last Admin: 10/24/16 14:22 Dose: 1 mg Metronidazole (Flagyl) 500 mg in 100 mls @ 100 mls/hr IVPB Q8 ERYN PRN Reason: Protocol Last Admin: 10/24/16 13:46 Dose: 100 mls/hr Ceftriaxone Sodium (Rocephin 1 Gram Ivpb) 1 gm in 100 mls @ 100 mls/hr IVPB DAILY [facility] PRN Reason: Protocol Stop: 10/25/16 23:59 Last Admin: 10/24/16 09:43 Dose: 100 mls/hr Potassium Chloride 40 meq/ (Sodium Chloride) 1,020 mls @ 100 mls/hr IV .[id number] [facility] Last Admin: 10/24/16 13:45 Dose: 100 mls/hr Ondansetron HCl (Zofran Inj) 4 mg IVP Q4 PRN PRN Reason: Nausea/Vomiting Pantoprazole Sodium (Protonix Ec Tab) 40 mg PO 0600 [facility] Last Admin: 10/24/16 05:57 Dose: 40 mg Simethicone (Mylicon Chew Tab) 80 mg PO [facility] PRN PRN Reason: GI distress Last Admin: 10/24/16 09:43 Dose: 80 mg - Labs Labs: 10/24/16 06:30 10/24/16 06:30 PT 12.0 Seconds (9.9-11.8) H 10/22/16 14:40 INR 1.11 (0.93-1.08) H 10/22/16 14:40 APTT 34.1 Seconds (23.7-30.8) H 10/22/16 14:40 Attending/Attestation - Attestation I have personally seen and examined this patient.: Yes I have fully participated in the care of the patient.: Yes I have reviewed all pertinent clinical information, including history, physical exam and plan: Yes Notes (Text): 10/24/16 17:30 attending note; Patient seen and examined with resident. Patient is 36-year-old male admitted severe colitis. possible infectious colitis suspected. GI evaluation appreciated. Patient is on clear liquid diet now. Abdominal pain Is improving. continue IV Rocephin and Flagyl. Possible discharge home tomorrow if clinically improves. upon discharge the patient will follow up with [facility] clinic. patient is advised to complete [facility] paper work. 10/24/16 17:32
[2016-10-25] MEDS: HYDROmorphone 1 mg/ml ISec IVP PRN ×2 (04:08→13:37)
[2016-10-25] MEDS: metroNIDAZOLE IV 500 mg/100 ml 500 MG/100 ML BAG IVPB SCH ×2 (06:00→13:39)
[2016-10-25] MEDS: Pantoprazole 40 mg EC Tab PO SCH (06:01)
[2016-10-25 07:09] LABS: BASO # 0.02 K/mm3 (0.0-2.0); BASO % 0.2 % (0.0-3.0); EOS % 0.1 % (1.5-5.0); GRAN # 7.63 (1.4-6.5); GRAN % 74.8 % (50.0-68.0); LYMPH # 1.3 (1.2-3.4); LYMPH % 12.3 % (22.0-35.0); MEAN CELL VOLUME 85.5 fL (80.0-105.0); MEAN CORPUSCULAR HGB CONC 35.1 g/dl (31.0-37.0); MEAN PLATELET VOLUME 9.4 fl (7.0-11.0); MONO # 1.3 (0.1-0.6); MONO % 12.6 % (1.0-6.0); PLATELET COUNT 246 10^3/uL (120.0-450.0); RBC 4.33 10^6/uL (3.5-6.1); RED CELL DISTRIBUTION WIDTH 12.7 % (11.5-14.5); WHITE BLOOD COUNT 10.2 10^3/ul (4.5-11.0)
[2016-10-25 07:28] LABS: ALB/GLOB RATIO 1.1 (1.1-1.8); ALBUMIN 2.9 g/dL (3.0-4.8); ALT/SGPT 39 U/L (7-56); AST/SGOT 38 U/L (15-59); BLOOD UREA NITROGEN 10 mg/dL (7-21); CALCIUM 8.2 mg/dL (8.4-10.5); GFR AFRICAN-AMERICAN > 60; GFR NON-AFRICAN AMERICAN > 60
--- NOTE | 2016-10-25 08:07 | PN ---
DATE: 10/25/2016 SUBJECTIVE: I saw Mr. Hill this morning. He is a 36-year-old male here with complaints of nausea, vomiting, abdominal pain, and diarrhea. The patient has been improving on a daily basis on the current regimen, now consists of ceftriaxone and metronidazole. IV fluids, antiemetics plus PPI. The patient indicate the nausea is dissipated. Diarrhea has subsided as well. He expressed a desire to increase consistency of his diet. PHYSICAL EXAMINATION HEENT: Significant for dry mouth. CARDIOPULMONARY: Regular rhythm. LUNGS: Clear to auscultation. ABDOMEN: Soft. Irregular bowel sounds. He is mildly tender in the epigastric area. Also in the area of the left lower quadrant and a left periumbilical. The abdomen is not distended. LABORATORY DATA: cultures are negative. Evaluation of CBC indicates white count increased a little bit, H and H 13.0 and 38, platelet count 246. I reviewed this patient's chemistry results. Note that his were positive. ASSESSMENT AND PLAN: This is a 36-year-old male here with nausea, vomiting, abdominal pain, and diarrhea. Currently improving on the current therapeutic regimen. The patient is found to have marked thickening of the cecum and ascending colon, pericecal lymphadenopathy on CT scan. Thought also that he had some mural thickening in the area of the transverse and descending colon. appearance was suggestive of a colitis, but this was secondary to gastroenteritis or initial presentation from inflammatory bowel disease, unclear at this standpoint, but he is improving on ceftriaxone and metronidazole. At some later date, the patient should have a colonoscopic evaluation plus/minus either endoscopy or enteroscopy. Prior to discharge, one might consider a follow up CT. He is to check on status of his CT appearance after . where this patient wished to try at increase in diet consistency. He want to electively try small portions of something soft since a diet may produce much more gas than tolerated at the current time point. He is advised to try only very small portions of something soft. If soft liquid diet will decrease back to liquid diet. Kris Lacey DO [facility] # [id number]
[2016-10-25] MEDS: cefTRIAXone 1 gm 1 GM/100 ML BAG IVPB SCH (09:32)
[2016-10-25 11:16] VITALS: O2SAT 98
[2016-10-25 16:51] VITALS: BP 115/76; PULSE 71; RESP 19; TEMP 99.1
--- NOTE | 2016-10-26 14:26 | CP.PCM.DIS ---
<ANTONY GARCIA - Last Filed: 10/26/16 14:19> Provider - Provider Date of Admission: 10/22/16 14:04 Attending physician: Romeo Jovel MD Primary care physician: None Consults: Plii Lacey Time Spent in preparation of Discharge (in minutes): 43 Hospital Course - Lab Results Lab Results: Most Recent Lab Values WBC 10.2 10^3/ul (4.5-11.0) 10/25/16 06:00 RBC 4.33 10^6/uL (3.5-6.1) 10/25/16 06:00 Hgb 13.0 gm/dL (14.0-18.0) L 10/25/16 06:00 Hct 37.0 % (42.0-52.0) L 10/25/16 06:00 MCV 85.5 fL (80.0-105.0) 10/25/16 06:00 MCH 30.0 pg (25.0-35.0) 10/25/16 06:00 MCHC 35.1 g/dl (31.0-37.0) 10/25/16 06:00 RDW 12.7 % (11.5-14.5) 10/25/16 06:00 Plt Count 246 10^3/uL (120.0-450.0) 10/25/16 06:00 MPV 9.4 fl (7.0-11.0) 10/25/16 06:00 Gran % 74.8 % (50.0-68.0) H 10/25/16 06:00 Lymph % (Auto) 12.3 % (22.0-35.0) L 10/25/16 06:00 Quay % (Auto) 12.6 % (1.0-6.0) H 10/25/16 06:00 Eos % (Auto) 0.1 % (1.5-5.0) L 10/25/16 06:00 Baso % (Auto) 0.2 % (0.0-3.0) 10/25/16 06:00 Gran # 7.63 (1.4-6.5) H 10/25/16 06:00 Lymph # 1.3 (1.2-3.4) 10/25/16 06:00 Quay # 1.3 (0.1-0.6) H 10/25/16 06:00 Eos # 0.0 (0.0-0.7) 10/25/16 06:00 Baso # 0.02 K/mm3 (0.0-2.0) 10/25/16 06:00 Neutrophils % (Manual) 49 % (50.0-70.0) L 10/22/16 09:57 Band Neutrophils % 26 % (0-2) H* 10/22/16 09:57 Lymphocytes % (Manual) 17 % (22.0-35.0) L 10/22/16 09:57 Monocytes % (Manual) 8 % (1.0-6.0) H 10/22/16 09:57 Platelet Evaluation Normal (NORMAL) 10/22/16 09:57 PT 12.0 Seconds (9.9-11.8) H 10/22/16 14:40 INR 1.11 (0.93-1.08) H 10/22/16 14:40 APTT 34.1 Seconds (23.7-30.8) H 10/22/16 14:40 pO2 135 mm/Hg (30-55) H 10/22/16 13:00 VBG pH 7.37 (7.32-7.43) 10/22/16 13:00 VBG pCO2 39.0 (40-60) L 10/22/16 13:00 VBG HCO3 22.5 mmol/l (21-28) 10/22/16 13:00 VBG Total CO2 23.7 mmol.L (22-28) 10/22/16 13:00 VBG O2 Sat (Calc) 99.3 % (40-65) H 10/22/16 13:00 VBG Base Excess -2.5 mmol/L (0.0-2.0) L 10/22/16 13:00 VBG Potassium 3.7 mmol/L (3.6-5.2) 10/22/16 13:00 Sodium 136.0 mmol/L (132-148) 10/22/16 13:00 Chloride 109.0 mmol/L (98-107) H 10/22/16 13:00 Glucose 98 mg/dl (75-110) 10/22/16 13:00 Lactate 0.6 mmol/L (0.7-2.1) L 10/22/16 13:00 FiO2 21.0 % 10/22/16 13:00 Sodium 133 mmol/L (132-148) 10/25/16 06:00 Potassium 3.9 mmol/L (3.6-5.0) 10/25/16 06:00 Chloride 102 mmol/L (98-107) 10/25/16 06:00 Carbon Dioxide 25 mmol/L (21-33) 10/25/16 06:00 Anion Gap 10 (10-20) 10/25/16 06:00 BUN 10 mg/dL (7-21) 10/25/16 06:00 Creatinine 0.6 mg/dL (0.5-1.4) 10/25/16 06:00 Est GFR ( Amer) > 60 10/25/16 06:00 Est GFR (Non-Af Amer) > 60 10/25/16 06:00 Random Glucose 100 mg/dL (70-110) 10/25/16 06:00 Calcium 8.2 mg/dL (8.4-10.5) L 10/25/16 06:00 Total Bilirubin 0.4 mg/dL (0.2-1.3) 10/25/16 06:00 AST 38 U/L (15-59) 10/25/16 06:00 ALT 39 U/L (7-56) 10/25/16 06:00 Alkaline Phosphatase 63 U/L (38-133) 10/25/16 06:00 Lactate Dehydrogenase 394 U/L (333-699) 10/23/16 06:00 Total Protein 5.7 g/dL (5.8-8.3) L 10/25/16 06:00 Albumin 2.9 g/dL (3.0-4.8) L 10/25/16 06:00 Globulin 2.7 gm/dL 10/25/16 06:00 Albumin/Globulin Ratio 1.1 (1.1-1.8) 10/25/16 06:00 Lipase 49 U/L (23-300) 10/22/16 09:57 Venous Blood Potassium 3.7 mmol/L (3.6-5.2) 10/22/16 13:00 Stool Leukocytes, Qual Positive (NEGATIVE) H 10/23/16 07:00 - Hospital Course Hospital Course: Mr. Hill is a 36 year old male with no significant past medical history presented with fever, nausea, diarrhea, and generalized abdominal pain. A CT abd /pelv showed findings suggestive of extensive segmental colitis affecting majority of colon but sparing rectosigmoid segment; consider infectious or inflammatory though ischemia and malignancy cannot be ruled out. GI was consulted. Patient was placed on IV cipro and IV flagyl. GI then changed this to IV Rocephin and IV flagyl. Stool cultures were obtained and showed stool leukocytes. Patient was started on morphine for severe abdominal pain and kept NPO for bowel rest. Patient remained clinically stable on IV antibiotics and bowel rest for 48 hours. His diet was advanced as tolerated until his abdominal pain was resolved and he could tolerate PO intake. Patient was then discharged on PO Cipro and PO flagyl along with probiotics and recommendations to follow up with both a PMD of his choice and gastroenterology on 10/25. - Date & Time of H&P Date of H&P: 10/22/16 Time of H&P: 20:37 Discharge Exam - Head Exam Head Exam: NORMAL INSPECTION - Eye Exam Eye Exam: EOMI, Normal appearance - ENT Exam ENT Exam: Mucous Membranes Moist, Normal Exam - Neck Exam Neck exam: Full Rom - Respiratory Exam Respiratory Exam: NORMAL BREATHING PATTERN, UNREMARKABLE. absent: Prolonged Expiratory Phase, Rales, Rhonchi, Wheezes, Respiratory Distress - Cardiovascular Exam Cardiovascular Exam: REGULAR RHYTHM, RRR, +S1, +S2. absent: Bradycardia, Tachycardia, Diastolic murmur, Systolic Murmur - GI/Abdominal Exam GI & Abdominal Exam: Normal Bowel Sounds, Unremarkable. absent: Distended, Firm , Guarding, Mass, Tenderness - Extremities Exam Additional comments: No calf tenderness or pedal edema bilaterally - Neurological Exam Neurological exam: Alert, Normal Gait, Oriented x3 - Psychiatric Exam Psychiatric exam: Normal Affect, Normal Mood - Skin Skin Exam: Dry, Intact, Normal Color, Warm Discharge Plan - Discharge Medications Prescriptions: Ciprofloxacin HCl [Cipro] 500 mg PO BID #10 tablet Lactobacillus Acidophilus [Acidophilus] 1 cap PO BID #10 cap Metronidazole [Flagyl] 500 mg PO Q8 #15 tablet - Follow Up Plan Condition: GOOD Disposition: HOME/ ROUTINE Instructions: Gastroenteritis (DC) Additional Instructions: 1. [place] [facility] [place]. 2. Complete antibiotics. 3. Complete [facility] paperwork. 4. Follow up with Dr. Lacey in clinic. His information has been provided for you. Referrals: [facility], [Non-Staff] - <Romeo Jovel - Last Filed: 10/26/16 14:41> Provider - Provider Date of Admission: 10/22/16 14:04 Attending physician: Romeo Jovel MD Hospital Course - Lab Results Lab Results: Most Recent Lab Values WBC 10.2 10^3/ul (4.5-11.0) 10/25/16 06:00 RBC 4.33 10^6/uL (3.5-6.1) 10/25/16 06:00 Hgb 13.0 gm/dL (14.0-18.0) L 10/25/16 06:00 Hct 37.0 % (42.0-52.0) L 10/25/16 06:00 MCV 85.5 fL (80.0-105.0) 10/25/16 06:00 MCH 30.0 pg (25.0-35.0) 10/25/16 06:00 MCHC 35.1 g/dl (31.0-37.0) 10/25/16 06:00 RDW 12.7 % (11.5-14.5) 10/25/16 06:00 Plt Count 246 10^3/uL (120.0-450.0) 10/25/16 06:00 MPV 9.4 fl (7.0-11.0) 10/25/16 06:00 Gran % 74.8 % (50.0-68.0) H 10/25/16 06:00 Lymph % (Auto) 12.3 % (22.0-35.0) L 10/25/16 06:00 Quay % (Auto) 12.6 % (1.0-6.0) H 10/25/16 06:00 Eos % (Auto) 0.1 % (1.5-5.0) L 10/25/16 06:00 Baso % (Auto) 0.2 % (0.0-3.0) 10/25/16 06:00 Gran # 7.63 (1.4-6.5) H 10/25/16 06:00 Lymph # 1.3 (1.2-3.4) 10/25/16 06:00 Quay # 1.3 (0.1-0.6) H 10/25/16 06:00 Eos # 0.0 (0.0-0.7) 10/25/16 06:00 Baso # 0.02 K/mm3 (0.0-2.0) 10/25/16 06:00 Neutrophils % (Manual) 49 % (50.0-70.0) L 10/22/16 09:57 Band Neutrophils % 26 % (0-2) H* 10/22/16 09:57 Lymphocytes % (Manual) 17 % (22.0-35.0) L 10/22/16 09:57 Monocytes % (Manual) 8 % (1.0-6.0) H 10/22/16 09:57 Platelet Evaluation Normal (NORMAL) 10/22/16 09:57 PT 12.0 Seconds (9.9-11.8) H 10/22/16 14:40 INR 1.11 (0.93-1.08) H 10/22/16 14:40 APTT 34.1 Seconds (23.7-30.8) H 10/22/16 14:40 pO2 135 mm/Hg (30-55) H 10/22/16 13:00 VBG pH 7.37 (7.32-7.43) 10/22/16 13:00 VBG pCO2 39.0 (40-60) L 10/22/16 13:00 VBG HCO3 22.5 mmol/l (21-28) 10/22/16 13:00 VBG Total CO2 23.7 mmol.L (22-28) 10/22/16 13:00 VBG O2 Sat (Calc) 99.3 % (40-65) H 10/22/16 13:00 VBG Base Excess -2.5 mmol/L (0.0-2.0) L 10/22/16 13:00 VBG Potassium 3.7 mmol/L (3.6-5.2) 10/22/16 13:00 Sodium 136.0 mmol/L (132-148) 10/22/16 13:00 Chloride 109.0 mmol/L (98-107) H 10/22/16 13:00 Glucose 98 mg/dl (75-110) 10/22/16 13:00 Lactate 0.6 mmol/L (0.7-2.1) L 10/22/16 13:00 FiO2 21.0 % 10/22/16 13:00 Sodium 133 mmol/L (132-148) 10/25/16 06:00 Potassium 3.9 mmol/L (3.6-5.0) 10/25/16 06:00 Chloride 102 mmol/L (98-107) 10/25/16 06:00 Carbon Dioxide 25 mmol/L (21-33) 10/25/16 06:00 Anion Gap 10 (10-20) 10/25/16 06:00 BUN 10 mg/dL (7-21) 10/25/16 06:00 Creatinine 0.6 mg/dL (0.5-1.4) 10/25/16 06:00 Est GFR ( Amer) > 60 10/25/16 06:00 Est GFR (Non-Af Amer) > 60 10/25/16 06:00 Random Glucose 100 mg/dL (70-110) 10/25/16 06:00 Calcium 8.2 mg/dL (8.4-10.5) L 10/25/16 06:00 Total Bilirubin 0.4 mg/dL (0.2-1.3) 10/25/16 06:00 AST 38 U/L (15-59) 10/25/16 06:00 ALT 39 U/L (7-56) 10/25/16 06:00 Alkaline Phosphatase 63 U/L (38-133) 10/25/16 06:00 Lactate Dehydrogenase 394 U/L (333-699) 10/23/16 06:00 Total Protein 5.7 g/dL (5.8-8.3) L 10/25/16 06:00 Albumin 2.9 g/dL (3.0-4.8) L 10/25/16 06:00 Globulin 2.7 gm/dL 10/25/16 06:00 Albumin/Globulin Ratio 1.1 (1.1-1.8) 10/25/16 06:00 Lipase 49 U/L (23-300) 10/22/16 09:57 Venous Blood Potassium 3.7 mmol/L (3.6-5.2) 10/22/16 13:00 Stool Leukocytes, Qual Positive (NEGATIVE) H 10/23/16 07:00 Attending/Attestation - Attestation I have personally seen and examined this patient.: Yes I have fully participated in the care of the patient.: Yes I have reviewed all pertinent clinical information, including history, physical exam and plan: Yes Notes (Text): 10/26/16 14:39 attending note; Patient seen and examined with resident. Patient is 36-year-old male admitted severe colitis. possible infectious colitis. GI evaluation appreciated. Patient is tolerating small amount of soft diet. Abdominal pain improved. Treated with IV Rocephin and Flagyl. Will be discharged home with ciprofloxacin and Flagyl. Needs outpatient GI evaluation. Needs outpatient colonoscopy if symptoms reoccur. upon discharge the patient will follow [place] [facility] patient is advised to complete [facility] paper work. Diagnosis; Colitis Abdominal pain
== END 2016-10-25 18:32 | disposition home or self-care (01) | DRG 179 ==
LOC: ED 09:20 → ERH 14:04 → 3RSO 16:29
PROVIDERS: ADMIT Hospitalist; ATTEND Internal Medicine
DX: K50.10 Crohn's disease of large intestine without complications (principal); A09 Infectious gastroenteritis and colitis, unspecified; Z90.49 Acquired absence of other specified parts of digestive tract

== ENCOUNTER 2016-11-29 12:35 | Observation (INO) | payer OTHER ==
[2016-11-29 12:35] VITALS: BMI 23.6
[2016-11-29] MEDS ORDERED: Sodium Chloride 0.9% 1,000 ML IV STA (13:00)
[2016-11-29] MEDS ORDERED: Morphine 4 mg/ml ISec IVP STA ×2 (13:29→15:32)
[2016-11-29 13:36] LABS: BASO # 0.02 K/mm3 (0.0-2.0); BASO % 0.2 % (0.0-3.0); EOS # 0.1 (0.0-0.7); EOS % 0.6 % (1.5-5.0); GRAN # 6.2 (1.4-6.5); GRAN % 74.7 % (50.0-68.0); HEMATOCRIT 37.4 % (42.0-52.0); LYMPH # 1.3 (1.2-3.4); LYMPH % 15.1 % (22.0-35.0); MEAN CELL VOLUME 89.5 fl (80.0-105.0); MEAN CORPUSCULAR HEMOGLOBIN 31.1 pg (25.0-35.0); MEAN CORPUSCULAR HGB CONC 34.8 g/dl (31.0-37.0); MEAN PLATELET VOLUME 9.8 fl (7.0-11.0); MONO # 0.8 (0.1-0.6); MONO % 9.4 % (1.0-6.0); RED CELL DISTRIBUTION WIDTH 13.3 % (11.5-14.5); WHITE BLOOD COUNT 8.3 10^3/ul (4.5-11.0)
[2016-11-29 13:46] LABS: ALB/GLOB RATIO 1.4 (1.1-1.8); ALKALINE PHOSPHATASE 60 U/L (38-133); ALT/SGPT 29 U/L (7-56); AMYLASE 103 U/L (35-125); AST/SGOT 24 U/L (15-59); BILIRUBIN,TOTAL 0.6 mg/dL (0.2-1.3); BLOOD UREA NITROGEN 13 mg/dL (7-21); CALCIUM 8.9 mg/dL (8.4-10.5); CARBON DIOXIDE 25 mmol/L (21-33); CHLORIDE 105 mmol/L (98-107); GFR AFRICAN-AMERICAN > 60; GLUCOSE,RANDOM 101 mg/dL (70-110); LIPASE 306 U/L (23-300); POTASSIUM 3.8 mmol/L (3.6-5.0); SODIUM 140 mmol/L (132-148); TOTAL PROTEIN 6.9 g/dL (5.8-8.3)
[2016-11-29 14:14] LABS: VENOUS BLOOD GAS BASE EXCESS 0.2 mmol/L (0.0-2.0); VENOUS BLOOD PH 7.33 (7.32-7.43)
[2016-11-29] MEDS: cefTRIAXone 1 gm 1 GM/100 ML BAG IVPB SCH (14:32)
[2016-11-29] MEDS ORDERED: Iohexol 350 MG/100 ML VIAL ONE (14:36)
--- NOTE | 2016-11-29 14:52 | ED PDOC ---
Addendum entered and electronically signed by Betina Hayes PA 11/29/16 17 :34: Addendum Addendum: 11/29/16 17:34 addendum to Physical exam: abdomen; + diffuse abdominal tenderness, + luq, LLQ tenderness, + periumbilical tenderness. no rebound, voluntary guarding Original Note: Arrival/HPI - General Historian: Patient - History of Present Illness Time/Duration: Prior to Arrival Symptom Onset: Sudden Quality: Aching, Stabbing, Cramping Severity Level: Severe - General Chief Complaint: Abdominal Pain Time Seen by Provider: 11/29/16 13:00 - History of Present Illness Narrative History of Present Illness (Text): 11/29/16 15:05 36-year-old male with a history of diverticulitis about one month ago presents today with worsening pain that develops since this morning. Patient developed sudden onset of sharp stabbing left lower quadrant abdominal pain that has worsened throughout the morning. He is complaining of nausea no vomiting. Denies diarrhea or constipation. Denies chest pain or shortness of breath. Denies fevers or chills. Patient states when he was diagnosed with diverticulitis he was discharged home with Cipro and Flagyl after a 5 day stay in the hospital. Patient states this is very similar to the pain that he had in the past when he was diagnosed with diverticulitis. Patient states the pain is slightly less than it was on his last visit. (Betina Hayes) Past Medical History - Provider Review Nursing Documentation Reviewed: Yes - Travel History Have you recently traveled outside [place] w/in the past 3 mons?: No - Infectious Disease Hx of Infectious Diseases: None - Tetanus Immunization Tetanus Immunization: Unknown - Musculoskeletal/Rheumatological Hx Falls: No - Psychiatric Hx Depression: No Hx Emotional Abuse: No Hx Physical Abuse: No Hx Substance Use: No - Surgical History Hx Cholecystectomy: Yes - Anesthesia Hx Anesthesia: Yes Hx Anesthesia Reactions: No Hx Malignant Hyperthermia: No - Suicidal Assessment Feels Threatened In Home Enviroment: No Family/Social History - Physician Review Nursing Documentation Reviewed: Yes Family/Social History: Unknown Family HX Smoking Status: Never Smoked Hx Alcohol Use: No Hx Substance Use: No Allergies/Home Meds Allergies/Adverse Reactions: Allergies No Known Allergies Allergy (Verified 11/29/16 12:49) Review of Systems - Review of Systems Constitutional: absent: Fatigue, Fevers Respiratory: absent: SOB, Cough Cardiovascular: absent: Chest Pain, Palpitations Gastrointestinal: Abdominal Pain, Nausea. absent: Constipation, Diarrhea, Vomiting Genitourinary Male: absent: Dysuria, Frequency Musculoskeletal: absent: Arthralgias, Back Pain, Neck Pain Skin: absent: Rash, Pruritis Neurological: absent: Headache, Dizziness Psychiatric: absent: Anxiety, Depression Physical Exam Vital Signs Reviewed: Yes Temperature: Afebrile Blood Pressure: Normal Pulse: Regular Respiratory Rate: Normal Appearance: Positive for: Well-Appearing, Non-Toxic, Uncomfortable Pain Distress: Mild Mental Status: Positive for: Alert and Oriented X 3 - Systems Exam Head: Present: Atraumatic Mouth: Present: Moist Mucous Membranes Neck: Present: Normal Range of Motion Respiratory/Chest: Present: Clear to Auscultation, Good Air Exchange. No: Respiratory Distress, Accessory Muscle Use Cardiovascular: Present: Regular Rate and Rhythm, Normal S1, S2. No: Murmurs Back: Present: Normal Inspection Upper Extremity: Present: Normal ROM Lower Extremity: Present: Normal ROM Neurological: Present: GCS=15 Skin: Present: Warm, Dry, Normal Color. No: Rashes Psychiatric: Present: Alert, Oriented x 3 Medical Decision Making ED Course and Treatment: 11/29/16 15:08 Patient is nontoxic well appearing with stable vital signs presenting with severe abdominal pain pt with hx of recent diverticulitis; now with similar complaints. pt seen by dr. blackmon in [place]. he ordered rocephin and flagyl. CBC wnl CMP wnl Lipase 306 Urinalysis trace blood CAT scan FINDINGS: LOWER THORAX: Lung bases are clear. No infiltrate effusion or basilar pneumothorax. There is a small hiatal hernia. Heart size within range of normal. No significant pericardial effusion. LIVER: Liver exhibits upper limits of normal measuring nearly 18 cm in CC dimension. Mild diffuse fatty hepatic infiltration. Portal and splenic veins are opacified. GALLBLADDER AND BILE DUCTS: status post cholecystectomy. . PANCREAS: .The pancreas appears grossly unremarkable. No gross lesion or ductal dilatation. SPLEEN: Unremarkable. ADRENALS: Unremarkable. No mass. KIDNEYS AND URETERS: Unremarkable. No hydronephrosis. No solid mass. VASCULATURE: Unremarkable. No aortic aneurysm. BOWEL: Evaluation of the bowel is limited due to the lack of oral contrast. Stomach at is incompletely distended which may account for thick-walled appearance. Possibility of a gastritis not excluded. Clinic correlation recommended. There are multiple mildly thick-walled loops of small bowel in the left upper abdomen ; rule out nonspecific enteritis APPENDIX: Normal appendix. Appendix is unremarkable best seen on axial image number [id number]. PERITONEUM: Unremarkable. No free fluid. No free air. LYMPH NODES: Unremarkable. No enlarged lymph nodes. BLADDER: Urinary bladder is markedly distended. Rule out urinary retention; rule out bladder outlet obstruction. REPRODUCTIVE: Prostate gland the appears mildly enlarged measuring approximately 4.7 cm in transverse dimension. . This is likely due to BPH however correlation with PSA recommended. BONES: No acute fracture. OTHER FINDINGS: None. IMPRESSION: Findings consistent most likely represent nonspecific enteritis. No evidence of acute appendicitis. Liver is upper limits of normal size with a small amount of ascites seen surrounding the inferior aspect right lobe liver. . Status post cholecystectomy. Markedly distended urinary bladder. Rule out urinary retention or bladder outlet obstruction. Prostate appears mildly enlarged. This is likely due to BPH however correlation with PSA recommended Patient reassessment: pt with continued pain; additional morphine added ct shows urinary distention; will do bladder scan; although patient just urinated after CT. bladder scan shows; 387ML. pt states he needs to urinate again. Discussed all results with patient in depth case discussed with dr. christopher; will admit observational status for intractable abdominal pain, elevated lipase. Impression: Abdominal pain, intractable admit observational status to med/surg (Betina Hayes) Patient examined by me with PA. Patient with severe diffuse pain. IV pain medication ordered. 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 Limitations of CT imaging noted, given severe pain patient admitted for serial exams and GI consultation and treatment. (Bruce Clay) - Lab Interpretations Microbiology Results: Microbiology Results 11/29/16 13:45 Blood Blood Culture - Final NO GROWTH AFTER 5 DAYS 11/29/16 13:45 Blood Gram Stain - Final TEST NOT PERFORMED 11/29/16 13:15 Blood Blood Culture - Final NO GROWTH AFTER 5 DAYS 11/29/16 13:15 Blood Gram Stain - Final TEST NOT PERFORMED Lab Results: 11/29/16 13:00 11/29/16 13:00 Lab Results 11/29/16 15:30: Urine Color Yellow, Urine Appearance Clear, Urine pH 6.5, Ur Specific [place] 1.010, Urine Protein Negative, Urine Glucose (UA) Negative, Urine Ketones Negative, Urine Blood Trace-lysed H, Urine Nitrate Negative, Urine Bilirubin Negative, Urine Urobilinogen 0.2, Ur Leukocyte Esterase Negative , Urine RBC 1 - 3, Urine WBC 0 - 2, Ur Epithelial Cells None, Urine Bacteria Small 11/29/16 14:00: pO2 51, VBG pH 7.33, VBG pCO2 51.0, VBG HCO3 26.9, VBG Total CO2 28.5 H, VBG O2 Sat (Calc) 90.1 H, VBG Base Excess 0.2, VBG Potassium 3.7, Glucose 99, Lactate 0.7, FiO2 21.0, Sodium 140.0, Chloride 108.0 H, Venous Blood Potassium 3.7 11/29/16 13:00: WBC 8.3, RBC 4.18, Hgb 13.0 L, Hct 37.4 L, MCV 89.5, MCH 31.1, MCHC 34.8, RDW 13.3, Plt Count 258, MPV 9.8, Gran % 74.7 H, Lymph % (Auto) 15.1 L, [place] % (Auto) 9.4 H, Eos % (Auto) 0.6 L, Baso % (Auto) 0.2, Gran # 6.20, Lymph # 1.3, [place] # 0.8 H, Eos # 0.1, Baso # 0.02 11/29/16 13:00: Sodium 140, Potassium 3.8, Chloride 105, Carbon Dioxide 25, Anion Gap 14, BUN 13, Creatinine 0.7, Est GFR ( Amer) > 60, Est GFR (Non- Af Amer) > 60, Random Glucose 101, Calcium 8.9, Total Bilirubin 0.6, AST 24, ALT 29, Alkaline Phosphatase 60, Total Protein 6.9, Albumin 4.0, Globulin 2.9, Albumin/Globulin Ratio 1.4, Amylase 103, Lipase 306 H - RAD Interpretation Radiology Orders: 11/29/16 14:02 ABD & PELVIS IV CONTRAST ONLY [CT] Stat - Medication Orders Current Medication Orders: Discontinued Medications Docusate Sodium (Colace) 100 mg PO BID [facility] Last Admin: 12/01/16 10:18 Dose: 100 mg Heparin Sodium (Porcine) (Heparin) 5,000 units SC Q12 [facility] PRN Reason: Protocol Last Admin: 12/01/16 10:18 Dose: 5,000 units Sodium Chloride (Sodium Chloride 0.9%) 1,000 mls @ 999 mls/hr IV .Q1H1M STA Stop: 11/29/16 14:00 Last Admin: 11/29/16 13:25 Dose: 999 mls/hr Metronidazole (Flagyl) 500 mg in 100 mls @ 100 mls/hr IVPB Q8 ERYN PRN Reason: Protocol Last Admin: 12/01/16 13:18 Dose: 100 mls/hr Ceftriaxone Sodium (Rocephin 1 Gram Ivpb) 1 gm in 100 mls @ 100 mls/hr IVPB DAILY ER[facility] PRN Reason: Protocol Last Admin: 12/01/16 10:19 Dose: 100 mls/hr Sodium Chloride (Sodium Chloride 0.9%) 1,000 mls @ 100 mls/hr IV .Q10H ERYN Last Admin: 12/01/16 05:08 Dose: 100 mls/hr Iohexol (Omnipaque 350 100 Ml) Confirm Administered Dose 350 mg .ROUTE .STK-MED ONE Stop: 11/29/16 14:37 Lactobacillus Acidophilus (Bacid Acidophilus) 1 cap PO BID ERYN Last Admin: 12/01/16 10:18 Dose: 1 cap Morphine Sulfate (Morphine) 4 mg IVP STAT STA Stop: 11/29/16 13:30 Last Admin: 11/29/16 13:40 Dose: 4 mg Morphine Sulfate (Morphine) 4 mg IVP STAT STA Stop: 11/29/16 15:33 Last Admin: 11/29/16 15:59 Dose: 4 mg Morphine Sulfate (Morphine) 2 mg IVP Q6H PRN PRN Reason: Pain, moderate (4-7) Last Admin: 11/29/16 21:09 Dose: 2 mg Re-Assess: JONATAN Pain Assessment Document 11/29/16 22:09 KP (Rec: 11/30/16 00:13 KP [facility] [id number]) Pain Reassessment Is this a pain reassessment? Yes Sleep Is patient sleeping during reassessment? No Presence of Pain Presence of Pain No Ondansetron HCl (Zofran Inj) 4 mg IVP STAT STA Stop: 11/29/16 13:01 Last Admin: 11/29/16 13:17 Dose: 4 mg Ondansetron HCl (Zofran Inj) 4 mg IVP Q6H PRN PRN Reason: Nausea/Vomiting Pantoprazole Sodium (Protonix Inj) 40 mg IVP DAILY [facility] Last Admin: 11/30/16 09:10 Dose: 40 mg Pantoprazole Sodium (Protonix Ec Tab) 40 mg PO 0600 [facility] Last Admin: 12/01/16 05:05 Dose: 40 mg Potassium Chloride (Klor-Con 10) 40 meq PO BRK ERYN Potassium Chloride (K-Dur 20 Meq Er Tab) 40 meq PO BRK ERYN Potassium Chloride (K-Dur 20 Meq Er Tab) 40 meq PO ONCE ONE Stop: 11/30/16 13:01 Last Admin: 11/30/16 13:20 Dose: 40 meq Disposition/Present on Arrival - Present on Arrival Any Indicators Present on Arrival: No History of DVT/PE: No History of Uncontrolled Diabetes: No Urinary Catheter: No History of Decub. Ulcer: No History Surgical Site Infection Following: None - Disposition Have Diagnosis and Disposition been Completed?: Yes Disposition Time: 16:41 Patient Plan: Observation - Disposition Diagnosis: Intractable abdominal pain Disposition: HOSPITALIZED Condition: FAIR
[2016-11-29] MEDS: metroNIDAZOLE IV 500 mg/100 ml 500 MG/100 ML BAG IVPB SCH ×2 (15:22→21:06)
[2016-11-29 15:43] LABS: PH,URINE 6.5 (4.7-8.0); URINE BILIRUBIN NEGATIVE (NEGATIVE); URINE BLOOD TRACE-LYSED (NEGATIVE); URINE GLUCOSE (UA) NEGATIVE (NEGATIVE); URINE KETONE NEGATIVE (NEGATIVE); URINE LEUKOCYTE ESTERASE NEGATIVE Leu/uL (NEGATIVE); URINE PROTEIN NEGATIVE mg/dL (<30 mg/dL); URINE UROBILINOGEN 0.2 E.U./dL (<1 E.U./dL)
[2016-11-29 15:49] LABS: URINE APPEARANCE CLEAR (CLEAR); URINE COLOR YELLOW (YELLOW)
--- NOTE | 2016-11-29 16:10 | CT ---
PROCEDURE: CT Abdomen and Pelvis with contrast HISTORY: abd pain COMPARISON: None. TECHNIQUE: Contrast dose: 100 cc of Omnipaque 350 contrast Radiation dose: Total exam DLP = 240.07 mGy-cm. This CT exam was performed using one or more of the following dose reduction techniques: Automated exposure control, adjustment of the mA and/or kV according to patient size, and/or use of iterative reconstruction technique. FINDINGS: LOWER THORAX: Lung bases are clear. No infiltrate effusion or basilar pneumothorax. There is a small hiatal hernia. Heart size within range of normal. No significant pericardial effusion. LIVER: Liver exhibits upper limits of normal measuring nearly 18 cm in CC dimension. Mild diffuse fatty hepatic infiltration. Portal and splenic veins are opacified. GALLBLADDER AND BILE DUCTS: status post cholecystectomy. . PANCREAS: .The pancreas appears grossly unremarkable. No gross lesion or ductal dilatation. SPLEEN: Unremarkable. ADRENALS: Unremarkable. No mass. KIDNEYS AND URETERS: Unremarkable. No hydronephrosis. No solid mass. VASCULATURE: Unremarkable. No aortic aneurysm. BOWEL: Evaluation of the bowel is limited due to the lack of oral contrast. Stomach at is incompletely distended which may account for thick-walled appearance. Possibility of a gastritis not excluded. Clinic correlation recommended. There are multiple mildly thick-walled loops of small bowel in the left upper abdomen ; rule out nonspecific enteritis APPENDIX: Normal appendix. Appendix is unremarkable best seen on axial image number [id number]. PERITONEUM: Unremarkable. No free fluid. No free air. LYMPH NODES: Unremarkable. No enlarged lymph nodes. BLADDER: Urinary bladder is markedly distended. Rule out urinary retention; rule out bladder outlet obstruction. REPRODUCTIVE: Prostate gland the appears mildly enlarged measuring approximately 4.7 cm in transverse dimension. . This is likely due to BPH however correlation with PSA recommended. BONES: No acute fracture. OTHER FINDINGS: None. IMPRESSION: Findings consistent most likely represent nonspecific enteritis. No evidence of acute appendicitis. Liver is upper limits of normal size with a small amount of ascites seen surrounding the inferior aspect right lobe liver. . Status post cholecystectomy. Markedly distended urinary bladder. Rule out urinary retention or bladder outlet obstruction. Prostate appears mildly enlarged. This is likely due to BPH however correlation with PSA recommended
[2016-11-29 16:21] LABS: URINE BACTERIA SMALL (NEG); URINE WBC 0 - 2 /hpf (0-6)
--- NOTE | 2016-11-29 16:39 | CP.PCM.HP ---
<Fawn Oliveira - Last Filed: 11/29/16 17:32> History of Present Illness - History of Present Illness History of Present Illness: CC: stomach pain since this morning HPI: 36 year old male PMHx extensive segmental colitis presented to [facility] ED with left sided abdominal pain that started this morning. Patient reports pain started when he woke up and patient was not doing anything in particular. He rated the pain 10/10 in intensity and described it as a sharp, stabbing sensation. He reported the pain was like a band across his stomach but greater on the left side and would radiate to his left flank. Patient admitted to nausea but no vomiting. His last BM was this morning; it was formed, nonbloody, nonmelanotic, and abdominal pain was not changed by BM. He reported taking some PO liquid analgesic that he received from the ED he was seen at last for similar complaints and reported it helped slight. When I was examining him, the patient reported the pain was 6/10 after receiving morphine. His last meal was the night before and comprised of chicken and rice; patient was unable to eat all day today secondary to the pain. He denied any sick contacts, or recent travel. He did admit to experiencing flu-like symptoms 3 days ago with headache , sore throat, and some postnasal drip. Patient admitted to chills, abdominal pain, nausea, and weight changes. He reports that when he was seen at [facility] last during his admission he lost ~30pounds. He denied fever, headache, changes in vision, changes in hearing, sore throat, dizziness, chest pain, palpitations, SOB, cough, vomiting, bowel/bladder complaints, hematuria, leg pain/swelling, easy bruising, easy bleeding, rash. Of note, patient was recently discharged from [facility] for extensive segmental colitis on 10/26/16. Patient was discharged with PO Cipro and Flagyl which he completed. Patient had an appointment with PMD on 12/26/16. PMD: patient doesn't know the name. PMHx: extensive segmental colitis Meds: denies ALL: denies PSurgHx: cholecystectomy 10 years ago PProcedures: denies colonoscopy/EGD in the past SocHx: denies tobacco or drug use. Drinks socially. Is . 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 FamHx: denies hx of CVA, [place], cancer. Both parents have DM. Present on Admission - Present on Admission Any Indicators Present on Admission: No Review of Systems - Constitutional Constitutional: As Per HPI, Chills. absent: Fever - EENT Eyes: As Per HPI. absent: Change in Vision Ears: As Per HPI. absent: Tinnitus, Dizziness Nose/Mouth/Throat: As Per HPI. absent: Sore Throat - Cardiovascular Cardiovascular: As Per HPI. absent: Chest Pain, Dyspnea, Edema, Palpitations - Respiratory Respiratory: As Per HPI. absent: Cough, Dyspnea, Chest Congestion - Gastrointestinal Gastrointestinal: As Per HPI, Abdominal Pain, Cramping, Nausea. absent: Constipation, Diarrhea, Vomiting Additional comments: + decreased appetite secondary to pain - Genitourinary Genitourinary: As Per HPI. absent: Dysuria, Flank Pain, Hematuria, Pyuria, Urinary Frequency, Urinary Hesitance, Urinary Urgency, Freq UTI - Musculoskeletal Musculoskeletal: As Per HPI. absent: Numbness, Tingling - Integumentary Integumentary: As Per HPI. absent: Dry Skin, Pruritus, Rash - Neurological Neurological: As Per HPI. absent: Dizziness, Numbness, Headaches, Tingling - Psychiatric Psychiatric: As Per HPI. absent: Anxiety, Depression - Endocrine Endocrine: As Per HPI. absent: Palpitations, Polydipsia, Polyphagia, Polyuria - Hematologic/Lymphatic Hematologic: As Per HPI. absent: Easy Bleeding, Easy Bruising, Lymphadenopathy Past Patient History - Infectious Disease Hx of Infectious Diseases: None - Tetanus Immunizations Tetanus Immunization: Unknown - Past Social History Smoking Status: Never Smoked - MUSCULOSKELETAL/RHEUMATOLOGICAL Hx Falls: No - PSYCHIATRIC Hx Depression: No Hx Emotional Abuse: No Hx Physical Abuse: No Hx Substance Use: No - SURGICAL HISTORY Hx Cholecystectomy: Yes - ANESTHESIA Hx Anesthesia: Yes Hx Anesthesia Reactions: No Hx Malignant Hyperthermia: No Meds Allergies/Adverse Reactions: Allergies Allergy/AdvReac Type Severity Reaction Status Date / Time No Known Allergies Allergy Verified 11/29/16 12:49 Physical Exam - Constitutional Appears: Non-toxic, No Acute Distress - Head Exam Head Exam: ATRAUMATIC, NORMAL INSPECTION, NORMOCEPHALIC - Eye Exam Eye Exam: EOMI, Normal appearance, PERRL. absent: Conjunctival injection, Scleral icterus Pupil Exam: NORMAL ACCOMODATION - ENT Exam ENT Exam: Mucous Membranes Moist - Neck Exam Neck exam: Positive for: Full Rom, Normal Inspection. Negative for: Lymphadenopathy - Respiratory Exam Respiratory Exam: Clear to Auscultation Bilateral, NORMAL BREATHING PATTERN. absent: Accessory Muscle Use, Rales, Rhonchi, Wheezes, Respiratory Distress - Cardiovascular Exam Cardiovascular Exam: REGULAR RHYTHM, RRR, +S1, +S2 - GI/Abdominal Exam GI & Abdominal Exam: Normal Bowel Sounds, Soft, Tenderness (LUQ and LLQ). absent: Firm, Guarding, Rebound, Rigid - Extremities Exam Extremities exam: Positive for: normal capillary refill, normal inspection, pedal pulses present. Negative for: pedal edema - Back Exam Back exam: NORMAL INSPECTION. absent: rash noted - Neurological Exam Neurological exam: Alert, CN II-XII Intact, Oriented x3 - Psychiatric Exam Psychiatric exam: Normal Affect, Normal Mood - Skin Skin Exam: Dry, Intact, Normal Color, Warm Results - Vital Signs Recent Vital Signs: Last Vital Signs Temp 98.4 F 11/29/16 12:46 Pulse 63 11/29/16 12:46 Resp 20 11/29/16 12:46 BP 111/70 11/29/16 12:46 Pulse Ox 99 11/29/16 12:46 - Labs Result Diagrams: 11/29/16 13:00 11/29/16 13:00 Labs: Laboratory Results - last 24 hr 11/29/16 11/29/16 11/29/16 13:00 13:00 14:00 WBC 8.3 RBC 4.18 Hgb 13.0 L Hct 37.4 L MCV 89.5 MCH 31.1 MCHC 34.8 RDW 13.3 Plt Count 258 MPV 9.8 Gran % 74.7 H Lymph % (Auto) 15.1 L [place] % (Auto) 9.4 H Eos % (Auto) 0.6 L Baso % (Auto) 0.2 Gran # 6.20 Lymph # 1.3 [place] # 0.8 H Eos # 0.1 Baso # 0.02 pO2 51 VBG pH 7.33 VBG pCO2 51.0 VBG HCO3 26.9 VBG Total CO2 28.5 H VBG O2 Sat (Calc) 90.1 H VBG Base Excess 0.2 VBG Potassium 3.7 Glucose 99 Lactate 0.7 FiO2 21.0 Sodium 140 140.0 Potassium 3.8 Chloride 105 108.0 H Carbon Dioxide 25 Anion Gap 14 BUN 13 Creatinine 0.7 Est GFR ( Amer) > 60 Est GFR (Non-Af Amer) > 60 Random Glucose 101 Calcium 8.9 Total Bilirubin 0.6 AST 24 ALT 29 Alkaline Phosphatase 60 Total Protein 6.9 Albumin 4.0 Globulin 2.9 Albumin/Globulin Ratio 1.4 Amylase 103 Lipase 306 H Venous Blood Potassium 3.7 Urine Color Urine Appearance Urine pH Ur Specific [place] Urine Protein Urine Glucose (UA) Urine Ketones Urine Blood Urine Nitrate Urine Bilirubin Urine Urobilinogen Ur Leukocyte Esterase Urine RBC Urine WBC Ur Epithelial Cells Urine Bacteria 11/29/16 15:30 WBC RBC Hgb Hct MCV MCH MCHC RDW Plt Count MPV Gran % Lymph % (Auto) [place] % (Auto) Eos % (Auto) Baso % (Auto) Gran # Lymph # [place] # Eos # Baso # pO2 VBG pH VBG pCO2 VBG HCO3 VBG Total CO2 VBG O2 Sat (Calc) VBG Base Excess VBG Potassium Glucose Lactate FiO2 Sodium Potassium Chloride Carbon Dioxide Anion Gap BUN Creatinine Est GFR ( Amer) Est GFR (Non-Af Amer) Random Glucose Calcium Total Bilirubin AST ALT Alkaline Phosphatase Total Protein Albumin Globulin Albumin/Globulin Ratio Amylase Lipase Venous Blood Potassium Urine Color Yellow Urine Appearance Clear Urine pH 6.5 Ur Specific [place] 1.010 Urine Protein Negative Urine Glucose (UA) Negative Urine Ketones Negative Urine Blood Trace-lysed H Urine Nitrate Negative Urine Bilirubin Negative Urine Urobilinogen 0.2 Ur Leukocyte Esterase Negative Urine RBC 1 - 3 Urine WBC 0 - 2 Ur Epithelial Cells None Urine Bacteria Small Assessment & Plan - Assessment and Plan (Free Text) Assessment: 36 year old male PMHx extensive segmental colitis presented to [facility] ED with left sided abdominal pain that started this morning Plan: Enterocolitis - CT abd/pelvis: findings consistent with nonspecific enteritis; no evidence of acute appendicitis. Liver is upper limits of normal size with small amount of ascites seen surrounding the inferior aspect R lobe of the liver. s/p cholecystectomy. - Rocephin 1gm ivpb daily Day 1 - Flagyl 500mg ivpb q8 Day 1 - NPO - Zofran 4mg ivp q6 prn nausea - NS @ 100cc/hr - Morphine 2mg ivp q6 prn mod pain - Colace 100mg po bid - Florastor 1 tab po bid - f/u blood culture - GI: Dr. Lacey Distended urinary bladder seen on CT abd/pelvis - patient denies urinary complaints - Bladder scan PRN Mildly enlarged prostate seen on CT Abd/pelvis - patient denies any urinary complaints - f/u PSA GI ppx: Protonix 40mg ivp qdaily VTE ppx: SCDs, Heparin 5000u sc q12 Diet: NPO Case discussed with Dr. Cathy Oliveira PGY2 <Chino Morgan - Last Filed: 11/29/16 22:02> Results - Vital Signs Recent Vital Signs: Last Vital Signs Temp 97.5 F L 11/29/16 19:04 Pulse 53 L 11/29/16 19:04 Resp 20 11/29/16 19:04 BP 115/75 11/29/16 19:04 Pulse Ox 100 11/29/16 19:04 - Labs Result Diagrams: 11/29/16 13:00 11/29/16 13:00 Attending/Attestation - Attestation I have personally seen and examined this patient.: Yes I have fully participated in the care of the patient.: Yes I have reviewed all pertinent clinical information: Yes Notes (Text): 11/29/16 36 year old male with past medical history of recently treated colitis presents with abdominal pain. CT abd/pelvis shows enteritis, enlarged prostate, and distended bladder. Continue with iv antibiotics, analgesics and protonix. GI evaluation is requested. Patient denies any urinary complaints. Bladder scan prn is ordered. Chino Morgan MD Hospitalist.
[2016-11-29] MEDS ORDERED: Morphine 2 mg/ml ISec IVP PRN (17:49)
[2016-11-29] MEDS: Sodium Chloride 0.9% 1,000 ML IV SCH (19:00)
[2016-11-29] MEDS: Lactobacillus Acidophilus 500 MU Cap PO SCH (21:06)
[2016-11-30] MEDS: Sodium Chloride 0.9% 1,000 ML IV SCH ×2 (04:00→17:06)
[2016-11-30] MEDS: metroNIDAZOLE IV 500 mg/100 ml 500 MG/100 ML BAG IVPB SCH ×3 (05:12→21:54)
[2016-11-30 07:18] LABS: BASO # 0.03 K/mm3 (0.0-2.0); BASO % 0.4 % (0.0-3.0); EOS # 0.1 (0.0-0.7); EOS % 1.5 % (1.5-5.0); GRAN # 4.53 (1.4-6.5); HEMATOCRIT 37.4 % (42.0-52.0); LYMPH # 1.4 (1.2-3.4); LYMPH % 21.1 % (22.0-35.0); MEAN CELL VOLUME 89.7 fl (80.0-105.0); MEAN CORPUSCULAR HEMOGLOBIN 30.2 pg (25.0-35.0); MEAN CORPUSCULAR HGB CONC 33.7 g/dl (31.0-37.0); MONO # 0.7 (0.1-0.6); RED CELL DISTRIBUTION WIDTH 13.3 % (11.5-14.5); WHITE BLOOD COUNT 6.8 10^3/ul (4.5-11.0)
[2016-11-30 07:36] LABS: ALB/GLOB RATIO 1.3 (1.1-1.8); ALKALINE PHOSPHATASE 69 U/L (38-133); ALT/SGPT 45 U/L (7-56); AST/SGOT 43 U/L (15-59); BILIRUBIN,TOTAL 0.8 mg/dL (0.2-1.3); BLOOD UREA NITROGEN 9 mg/dL (7-21); CALCIUM 8.4 mg/dL (8.4-10.5); CARBON DIOXIDE 24 mmol/L (21-33); CHLORIDE 108 mmol/L (98-107); GFR AFRICAN-AMERICAN > 60; GLUCOSE,RANDOM 84 mg/dL (70-110); PHOSPHOROUS 3.6 mg/dL (2.5-4.5); POTASSIUM 3.4 mmol/L (3.6-5.0); SODIUM 142 mmol/L (132-148)
[2016-11-30] MEDS: Lactobacillus Acidophilus 500 MU Cap PO SCH ×2 (09:11→17:06)
[2016-11-30] MEDS: cefTRIAXone 1 gm 1 GM/100 ML BAG IVPB SCH (09:11)
[2016-11-30] MEDS ORDERED: Potassium Chloride 10 mEq ER Tab PO SCH (11:45)
[2016-11-30] MEDS ORDERED: Potassium Chloride 20 mEq ER Tab PO SCH (11:45)
--- NOTE | 2016-11-30 11:58 | CP.PCM.PN ---
<Arjun Contreras - Last Filed: 11/30/16 20:28> Subjective - Date & Time of Evaluation Date of Evaluation: 11/30/16 Time of Evaluation: 12:20 - Subjective Subjective: This is a 36 yr. old male seen at bedside resting comfortably. The patient reports a decrease in his pain level since starting the Morphine for pain. The patient also reports making urine and passing gas and his last bowel movement was yesterday morning. The patient is currently still NPO however the patient reports an increase in hunger. The patient did have hypokalemia on this mornings blood work and was subsequently put on KCL PO. The patient denies any fevers, chills, nausea, vomiting, chest pain, shortness of breath, blood in the stool, abdominal pain, or any other complaints. Objective - Vital Signs/Intake and Output Vital Signs (last 24 hours): Temp Pulse Resp BP Pulse Ox 98.2 F 60 20 98/51 L 96 11/30/16 08:51 11/30/16 08:51 11/30/16 08:51 11/30/16 08:51 11/30/16 08:51 Intake and Output: 11/30/16 11/30/16 06:59 18:59 Intake Total 0 Balance 0 - Medications Medications: Current Medications Docusate Sodium (Colace) 100 mg PO BID [facility] Last Admin: 11/30/16 09:10 Dose: 100 mg Heparin Sodium (Porcine) (Heparin) 5,000 units SC Q12 ERYN PRN Reason: Protocol Last Admin: 11/30/16 09:10 Dose: 5,000 units Metronidazole (Flagyl) 500 mg in 100 mls @ 100 mls/hr IVPB Q8 ERYN PRN Reason: Protocol Last Admin: 11/30/16 05:12 Dose: 100 mls/hr Ceftriaxone Sodium (Rocephin 1 Gram Ivpb) 1 gm in 100 mls @ 100 mls/hr IVPB DAILY [facility] PRN Reason: Protocol Last Admin: 11/30/16 09:11 Dose: 100 mls/hr Sodium Chloride (Sodium Chloride 0.9%) 1,000 mls @ 100 mls/hr IV .Q10H [facility] Last Admin: 11/30/16 04:00 Dose: 100 mls/hr Lactobacillus Acidophilus (Bacid Acidophilus) 1 cap PO BID [facility] Last Admin: 11/30/16 09:11 Dose: 1 cap Morphine Sulfate (Morphine) 2 mg IVP Q6H PRN PRN Reason: Pain, moderate (4-7) Last Admin: 11/29/16 21:09 Dose: 2 mg Ondansetron HCl (Zofran Inj) 4 mg IVP Q6H PRN PRN Reason: Nausea/Vomiting Pantoprazole Sodium (Protonix Inj) 40 mg IVP DAILY [facility] Last Admin: 11/30/16 09:10 Dose: 40 mg Potassium Chloride (K-Dur 20 Meq Er Tab) 40 meq PO BRK [facility] - Labs Labs: 11/30/16 05:50 11/30/16 05:50 APTT 27.8 Seconds (23.7-30.8) 11/30/16 05:50 - Constitutional Appears: Well, Non-toxic, No Acute Distress - Head Exam Head Exam: ATRAUMATIC, NORMAL INSPECTION, NORMOCEPHALIC - Eye Exam Eye Exam: EOMI, Normal appearance, PERRL. absent: Conjunctival injection Pupil Exam: NORMAL ACCOMODATION, PERRL. absent: Irregular, Miosis - ENT Exam ENT Exam: Mucous Membranes Moist, Normal Oropharynx - Neck Exam Neck Exam: Full ROM - Respiratory Exam Respiratory Exam: Clear to Ausculation Bilateral, NORMAL BREATHING PATTERN. absent: Wheezes, Respiratory Distress - Cardiovascular Exam Cardiovascular Exam: REGULAR RHYTHM, +S1, +S2. absent: Bradycardia, Tachycardia , +S4, Murmur - GI/Abdominal Exam GI & Abdominal Exam: Soft, Normal Bowel Sounds. absent: Firm, Guarding, Rigid, Tenderness - Extremities Exam Extremities Exam: Full ROM, Normal Inspection. absent: Pedal Edema - Back Exam Back Exam: NORMAL INSPECTION. absent: CVA tenderness (L), CVA tenderness (R) - Neurological Exam Neurological Exam: Alert, Awake, CN II-XII Intact - Skin Skin Exam: Dry, Normal Color. absent: Rash, Urticaria Assessment and Plan (1) Hypokalemia Assessment & Plan: Patient's K level this morning was 3.4. Ordered PO KCL 40mEq. EKG showed nonspecific changes. Will reorder CBC in the morning to follow potassium trend. Status: Acute (2) Intractable abdominal pain Assessment & Plan: Patient currently not complaining of any abdominal pain. Patient diet to be advanced as tolerated. Patient can be discharged once he is able to tolerate PO diet. Status: Acute (3) Pancolitis Assessment & Plan: Patient currently without pain. Patient to stay on Morphine 2mg IVP Q6 for pain. Patient is to continue Rocephin 1 gm IVPB QD(Day 1) and Flagyl 500 mg IVPB Q8( Day 1). Will follow up with GI in the morning to determine if any changes in management need to be made. Status: Acute <Sera Tobias MD - Last Filed: 12/05/16 11:11> Objective - Vital Signs/Intake and Output Vital Signs (last 24 hours): Temp Pulse Resp BP Pulse Ox 98 F 52 L 18 95/59 L 99 12/01/16 08:38 12/01/16 08:38 12/01/16 08:38 12/01/16 08:38 12/01/16 08:38 - Labs Labs: 12/01/16 09:35 12/01/16 09:35 APTT 27.8 Seconds (23.7-30.8) 11/30/16 05:50 Attending/Attestation - Attestation I have personally seen and examined this patient.: Yes I have fully participated in the care of the patient.: Yes I have reviewed all pertinent clinical information, including history, physical exam and plan: Yes Notes (Text): 12/05/16 11:10 Patient was seen and examined with medical assembly. Agreed with resident assessment and plan. 36 year old male with past medical history of recently treated colitis presents with abdominal pain. CT abd/pelvis shows enteritis,diarrhea has improved.Abdominal pain is resolved.We will advance diet. GI evaluation is appreciated. Management plan was discussed in detail with patient Education was provided.
--- NOTE | 2016-11-30 12:19 | PN ---
DATE: 11/30/2016 SUBJECTIVE: I examined Mr. Hill this morning. He is a 36-year-old male who is known to consultants with past medical history of pancolitis, examined during the month of October with similar problems. The patient was evaluated in the emergency room yesterday with symptoms similar to his prior admission. Previously, the patient did well with antibiotic therapy. After completing the treatment regimen, the patient was never placed on mesalamine therapy. He is scheduled to see a hat binder who apparently see the patient in the office for colonoscopy on 26 of December. At the bedside this morning, the patient indicates abdominal pain which is pretty much resolved. It is mild at best. No nausea and no diarrhea. The patient feels significantly improved after the antibiotic regimen which consists of Rocephin and metronidazole was restarted. PHYSICAL EXAMINATION VITAL SIGNS: I reviewed this patient's vital signs. HEENT: Noncontributory. LUNGS: Clear to auscultation HEART: Regular rate and rhythm. ABDOMEN: Soft. Mild tenderness in the area of the supraumbilical area, periumbilical, left lateral, left periumbilical as well as left lower quadrant. The abdomen is less distended than found in the ER yesterday. LABORATORY DATA: I reviewed the patient's CT images as well as report. CT report indicates "nonspecific enteritis as well as acute appendicitis." These studies was performed without oral contrast. ASSESSMENT: This is a 36-year-old male known to consultant rn with past medical history of pancolitis, very much presented nearly exactly the same as prior admission. The patient is responding to his current regimen which consists of Rocephin and metronidazole. We continued this at least several days IV and subsequently should complete the course out roughly for at least 10 to 14 days. The patient must be started on prophylactic mesalamine therapy to prevent recurrence if discharged. He is to be followed up for a colonoscopy later on this month with GI person at [facility]. This morning, I will advance the patient's diet to clear liquids. He will be followed up by house staff and hospitalist. Kris Lacye DO, PhD [facility] # [id number] MTDD
[2016-11-30] MEDS ORDERED: Potassium Chloride 20 mEq ER Tab PO ONE (13:00)
[2016-12-01 00:31] VITALS: RESP 18
[2016-12-01] MEDS: metroNIDAZOLE IV 500 mg/100 ml 500 MG/100 ML BAG IVPB SCH ×2 (05:04→13:18)
[2016-12-01] MEDS: Sodium Chloride 0.9% 1,000 ML IV SCH (05:08)
[2016-12-01] MEDS ORDERED: Pantoprazole 40 mg EC Tab PO SCH (06:00)
[2016-12-01 08:40] VITALS: BP 95/59; PULSE 52; TEMP 98; O2SAT 99
[2016-12-01 09:49] LABS: BASO # 0.02 K/mm3 (0.0-2.0); BASO % 0.4 % (0.0-3.0); EOS # 0.1 (0.0-0.7); EOS % 2.4 % (1.5-5.0); GRAN # 3.17 (1.4-6.5); LYMPH % 21.9 % (22.0-35.0); MEAN CORPUSCULAR HEMOGLOBIN 30.8 pg (25.0-35.0); MEAN CORPUSCULAR HGB CONC 34.2 g/dl (31.0-37.0); MEAN PLATELET VOLUME 9.8 fl (7.0-11.0); MONO # 0.3 (0.1-0.6); MONO % 7.3 % (1.0-6.0); RED CELL DISTRIBUTION WIDTH 13.3 % (11.5-14.5); WHITE BLOOD COUNT 4.7 10^3/ul (4.5-11.0)
--- NOTE | 2016-12-01 09:56 | PN ---
DATE: 12/01/2016 SUBJECTIVE: I saw Mr. Hill this morning. He is a 36-year-old male known to consultants with a history of diagnosed pancolitis. The patient continues to do well on current therapeutic regimen consisting of antibiotics. PHYSICAL EXAMINATION: ABDOMEN: On examination his morning, the patient had very little abdominal pain. Bowel movements have been under control as well. ASSESSMENT AND PLAN: I spoke to the house staff in detail about this case yesterday. We would suggest because of his diagnosis, continue on antibiotics in the form of Augmentin 500 b.i.d. plus metronidazole 500 t.i.d. for at least total of 14 days that is including the intravenous plus another 10 days of Augmentin and Flagyl. At least this should subsequently be followed by prophylactic mesalamine therapy in the form of Lialda 1.2 gram tablet, Asacol HD equivalent dose. I reviewed the issue of compassionate program with the house staff yesterday as well as with the patient. Again he is scheduled to see a electrolytic etcher for colonoscopy on the 26 of December. In the interim, we would suggest that the patient follow up with the gastroenterology had seen at [facility], who may be able to provide samples from his office. Again, this patient is doing fairly well, suggest that which may be another day or so or half day of IV antibiotics and followed by continuation of the oral regimen. Kris Lacey DO, PhD MTDWanda
[2016-12-01 10:01] LABS: ALB/GLOB RATIO 1.2 (1.1-1.8); ALKALINE PHOSPHATASE 60 U/L (38-133); ALT/SGPT 24 U/L (7-56); AST/SGOT 24 U/L (15-59); BILIRUBIN,TOTAL 0.8 mg/dL (0.2-1.3); BLOOD UREA NITROGEN 5 mg/dL (7-21); CALCIUM 8.5 mg/dL (8.4-10.5); CARBON DIOXIDE 23 mmol/L (21-33); CHLORIDE 106 mmol/L (95-110); GFR AFRICAN-AMERICAN > 60; GLUCOSE,RANDOM 147 mg/dL (70-110); POTASSIUM 3.7 mmol/L (3.6-5.0); SODIUM 140 mmol/L (132-148); TOTAL PROTEIN 6.3 g/dL (5.8-8.3)
[2016-12-01] MEDS: Lactobacillus Acidophilus 500 MU Cap PO SCH (10:18)
[2016-12-01] MEDS: cefTRIAXone 1 gm 1 GM/100 ML BAG IVPB SCH (10:19)
--- NOTE | 2016-12-01 17:56 | CP.PCM.DIS ---
<Arjun Contreras - Last Filed: 12/02/16 18:39> Provider - Provider Date of Admission: 11/29/16 17:03 Attending physician: Chino Morgan MD Primary care physician: NO PRIMARY CARE PROVIDER Time Spent in preparation of Discharge (in minutes): 30 Diagnosis - Discharge Diagnosis (1) Hypokalemia Status: Acute (2) Intractable abdominal pain Status: Acute (3) Pancolitis Status: Acute Hospital Course - Lab Results Lab Results: Most Recent Lab Values WBC 4.7 10^3/ul (4.5-11.0) D 12/01/16 09:35 RBC 4.00 10^6/uL (3.5-6.1) 12/01/16 09:35 Hgb 12.3 g/dL (14.0-18.0) L 12/01/16 09:35 Hct 36.0 % (42.0-52.0) L 12/01/16 09:35 MCV 90.0 fl (80.0-105.0) 12/01/16 09:35 MCH 30.8 pg (25.0-35.0) 12/01/16 09:35 MCHC 34.2 g/dl (31.0-37.0) 12/01/16 09:35 RDW 13.3 % (11.5-14.5) 12/01/16 09:35 Plt Count 220 10^3/uL (120.0-450.0) 12/01/16 09:35 MPV 9.8 fl (7.0-11.0) 12/01/16 09:35 Gran % 68.0 % (50.0-68.0) 12/01/16 09:35 Lymph % (Auto) 21.9 % (22.0-35.0) L 12/01/16 09:35 [place] % (Auto) 7.3 % (1.0-6.0) H 12/01/16 09:35 Eos % (Auto) 2.4 % (1.5-5.0) 12/01/16 09:35 Baso % (Auto) 0.4 % (0.0-3.0) 12/01/16 09:35 Gran # 3.17 (1.4-6.5) 12/01/16 09:35 Lymph # 1.0 (1.2-3.4) L 12/01/16 09:35 [place] # 0.3 (0.1-0.6) 12/01/16 09:35 Eos # 0.1 (0.0-0.7) 12/01/16 09:35 Baso # 0.02 K/mm3 (0.0-2.0) 12/01/16 09:35 APTT 27.8 Seconds (23.7-30.8) 11/30/16 05:50 pO2 51 mm/Hg (30-55) 11/29/16 14:00 VBG pH 7.33 (7.32-7.43) 11/29/16 14:00 VBG pCO2 51.0 (40-60) 11/29/16 14:00 VBG HCO3 26.9 mmol/l (21-28) 11/29/16 14:00 VBG Total CO2 28.5 mmol.L (22-28) H 11/29/16 14:00 VBG O2 Sat (Calc) 90.1 % (40-65) H 11/29/16 14:00 VBG Base Excess 0.2 mmol/L (0.0-2.0) 11/29/16 14:00 VBG Potassium 3.7 mmol/L (3.6-5.2) 11/29/16 14:00 Sodium 140.0 mmol/L (132-148) 11/29/16 14:00 Chloride 108.0 mmol/L (98-107) H 11/29/16 14:00 Glucose 99 mg/dl (75-110) 11/29/16 14:00 Lactate 0.7 mmol/L (0.7-2.1) 11/29/16 14:00 FiO2 21.0 % 11/29/16 14:00 Sodium 140 mmol/L (132-148) 12/01/16 09:35 Potassium 3.7 mmol/L (3.6-5.0) 12/01/16 09:35 Chloride 106 mmol/L (95-110) 12/01/16 09:35 Carbon Dioxide 23 mmol/L (21-33) 12/01/16 09:35 Anion Gap 15 (10-20) 12/01/16 09:35 BUN 5 mg/dL (7-21) L 12/01/16 09:35 Creatinine 0.7 mg/dL (0.5-1.4) 12/01/16 09:35 Est GFR ( Amer) > 60 12/01/16 09:35 Est GFR (Non-Af Amer) > 60 12/01/16 09:35 POC Glucose (mg/dL) 74 mg/dL (65-110) 12/01/16 07:21 Random Glucose 147 mg/dL (70-110) H 12/01/16 09:35 Calcium 8.5 mg/dL (8.4-10.5) 12/01/16 09:35 Phosphorus 3.6 mg/dL (2.5-4.5) 11/30/16 05:50 Magnesium 2.0 mg/dL (1.7-2.2) 11/30/16 05:50 Total Bilirubin 0.8 mg/dL (0.2-1.3) 12/01/16 09:35 AST 24 U/L (15-59) 12/01/16 09:35 ALT 24 U/L (7-56) 12/01/16 09:35 Alkaline Phosphatase 60 U/L (38-133) 12/01/16 09:35 Total Protein 6.3 g/dL (5.8-8.3) 12/01/16 09:35 Albumin 3.4 g/dL (3.0-4.8) 12/01/16 09:35 Globulin 2.8 gm/dL 12/01/16 09:35 Albumin/Globulin Ratio 1.2 (1.1-1.8) 12/01/16 09:35 Amylase 103 U/L (35-125) 11/29/16 13:00 Lipase 306 U/L (23-300) H 11/29/16 13:00 Prostate Specific Ag 3.2 ng/mL (0.00-2.5) H 11/30/16 05:50 Venous Blood Potassium 3.7 mmol/L (3.6-5.2) 11/29/16 14:00 Urine Color Yellow (YELLOW) 11/29/16 15:30 Urine Appearance Clear (CLEAR) 11/29/16 15:30 Urine pH 6.5 (4.7-8.0) 11/29/16 15:30 Ur Specific [place] 1.010 (1.005-1.035) 11/29/16 15:30 Urine Protein Negative mg/dL (<30 mg/dL) 11/29/16 15:30 Urine Glucose (UA) Negative mg/dL (NEGATIVE) 11/29/16 15:30 Urine Ketones Negative mg/dL (NEGATIVE) 11/29/16 15:30 Urine Blood Trace-lysed (NEGATIVE) H 11/29/16 15:30 Urine Nitrate Negative (NEGATIVE) 11/29/16 15:30 Urine Bilirubin Negative (NEGATIVE) 11/29/16 15:30 Urine Urobilinogen 0.2 E.U./dL (<1 E.U./dL) 11/29/16 15:30 Ur Leukocyte Esterase Negative [place]/uL (NEGATIVE) 11/29/16 15:30 Urine RBC 1 - 3 /hpf (0-2) 11/29/16 15:30 Urine WBC 0 - 2 /hpf (0-6) 11/29/16 15:30 Ur Epithelial Cells None /hpf (0-5) 11/29/16 15:30 Urine Bacteria Small (NEG) 11/29/16 15:30 - Hospital Course Hospital Course: Left sided abdominal pain that started this morning upon waking up while at rest when the patient started. He rated the pain a 10/10 in intensity and described it as a sharp, stabbing sensation. He reported the pain was like a band across his stomach but greater on the left side and would radiate to his left flank. He also reports some nausea but denies vomiting. His last bowel movement was that morning and was nonbloody, nonmelanotic, and his abdominal pain didn't change by the bowel movement. He reported taking some PO liquid analgesic that he received from the ED from his last visit which helped the pain a slightly. Patient was admitted and pain was 6/10 after receiving morphine. His last meal was the night before and compromised of chicken and rise; patient was unable to eat all day secondary to the pain. He denied any sick contacts or recent travel. He did admit to experiencing flu like symptoms 3 days ago with headache, sore throat, and some postnasal drip. Patient admitted to chills, abdominal pain, nausea, and weight changes. He also admitted to lost of 30 pounds since last being seen at [facility] [place]. Patient had a bladder scan done and had a PSA level of 3.2. Patient was seen by Lawrence, who recommended cont IV rocephin/flagyl for an additional day and PPX mesalamine (insurance issue prevent him from receiving this medication. Potassium was 3.4 and he was given 40meQ PO given. Patient was seen on 12/01 and doing better. Patient was discharged on Augmentin and Metronidazole and was to follow up with GI (Dr. Lacey) and his PMD within one week. - Date & Time of H&P Date of H&P: 11/29/16 Time of H&P: 16:39 Discharge Exam - Head Exam Head Exam: ATRAUMATIC, NORMAL INSPECTION, NORMOCEPHALIC - Eye Exam Eye Exam: EOMI, Normal appearance, PERRL. absent: Periorbital tenderness Pupil Exam: NORMAL ACCOMODATION, PERRL - ENT Exam ENT Exam: Mucous Membranes Moist - Respiratory Exam Respiratory Exam: Clear to PA & Lateral, NORMAL BREATHING PATTERN. absent: Accessory Muscle Use, Chest Wall Tenderness, Respiratory Distress - Cardiovascular Exam Cardiovascular Exam: REGULAR RHYTHM, +S1, +S2. absent: JVD - GI/Abdominal Exam GI & Abdominal Exam: Normal Bowel Sounds. absent: Distended, Firm, Guarding - Back Exam Back exam: NORMAL INSPECTION - Neurological Exam Neurological exam: Alert, CN II-XII Intact, Normal Gait, Oriented x3 - Skin Skin Exam: Dry, Intact, Normal Color Discharge Plan - Discharge Medications Prescriptions: Amoxicillin/Clavulanate [Augmentin 500 MG-125 MG] 1 tab PO BID #28 tab metroNIDAZOLE [Flagyl] 500 mg PO TID #42 tab - Follow Up Plan Condition: FAIR Disposition: HOME/ ROUTINE Instructions: Regular Diet (DC), Acute Abdominal Pain (DC) Additional Instructions: Patient is to F/U with GI and PMD doctors within one week. Patient is to scheduled for a colonoscopy on December 26. Patient should return to Emergency Department for any new or worsening conditions. Referrals: PCP,NO [Primary Care Provider] - Kris Lacey DO [Staff Provider] - <[facility] - Last Filed: 12/05/16 11:13> Provider - Provider Date of Admission: 11/29/16 17:03 Attending physician: Chino Morgan MD Primary care physician: NO PRIMARY CARE PROVIDER Hospital Course - Lab Results Lab Results: Most Recent Lab Values WBC 4.7 10^3/ul (4.5-11.0) D 12/01/16 09:35 RBC 4.00 10^6/uL (3.5-6.1) 12/01/16 09:35 Hgb 12.3 g/dL (14.0-18.0) L 12/01/16 09:35 Hct 36.0 % (42.0-52.0) L 12/01/16 09:35 MCV 90.0 fl (80.0-105.0) 12/01/16 09:35 MCH 30.8 pg (25.0-35.0) 12/01/16 09:35 MCHC 34.2 g/dl (31.0-37.0) 12/01/16 09:35 RDW 13.3 % (11.5-14.5) 12/01/16 09:35 Plt Count 220 10^3/uL (120.0-450.0) 12/01/16 09:35 MPV 9.8 fl (7.0-11.0) 12/01/16 09:35 Gran % 68.0 % (50.0-68.0) 12/01/16 09:35 Lymph % (Auto) 21.9 % (22.0-35.0) L 12/01/16 09:35 [place] % (Auto) 7.3 % (1.0-6.0) H 12/01/16 09:35 Eos % (Auto) 2.4 % (1.5-5.0) 12/01/16 09:35 Baso % (Auto) 0.4 % (0.0-3.0) 12/01/16 09:35 Gran # 3.17 (1.4-6.5) 12/01/16 09:35 Lymph # 1.0 (1.2-3.4) L 12/01/16 09:35 [place] # 0.3 (0.1-0.6) 12/01/16 09:35 Eos # 0.1 (0.0-0.7) 12/01/16 09:35 Baso # 0.02 K/mm3 (0.0-2.0) 12/01/16 09:35 APTT 27.8 Seconds (23.7-30.8) 11/30/16 05:50 pO2 51 mm/Hg (30-55) 11/29/16 14:00 VBG pH 7.33 (7.32-7.43) 11/29/16 14:00 VBG pCO2 51.0 (40-60) 11/29/16 14:00 VBG HCO3 26.9 mmol/l (21-28) 11/29/16 14:00 VBG Total CO2 28.5 mmol.L (22-28) H 11/29/16 14:00 VBG O2 Sat (Calc) 90.1 % (40-65) H 11/29/16 14:00 VBG Base Excess 0.2 mmol/L (0.0-2.0) 11/29/16 14:00 VBG Potassium 3.7 mmol/L (3.6-5.2) 11/29/16 14:00 Sodium 140.0 mmol/L (132-148) 11/29/16 14:00 Chloride 108.0 mmol/L (98-107) H 11/29/16 14:00 Glucose 99 mg/dl (75-110) 11/29/16 14:00 Lactate 0.7 mmol/L (0.7-2.1) 11/29/16 14:00 FiO2 21.0 % 11/29/16 14:00 Sodium 140 mmol/L (132-148) 12/01/16 09:35 Potassium 3.7 mmol/L (3.6-5.0) 12/01/16 09:35 Chloride 106 mmol/L (95-110) 12/01/16 09:35 Carbon Dioxide 23 mmol/L (21-33) 12/01/16 09:35 Anion Gap 15 (10-20) 12/01/16 09:35 BUN 5 mg/dL (7-21) L 12/01/16 09:35 Creatinine 0.7 mg/dL (0.5-1.4) 12/01/16 09:35 Est GFR ( Amer) > 60 12/01/16 09:35 Est GFR (Non-Af Amer) > 60 12/01/16 09:35 POC Glucose (mg/dL) 74 mg/dL (65-110) 12/01/16 07:21 Random Glucose 147 mg/dL (70-110) H 12/01/16 09:35 Calcium 8.5 mg/dL (8.4-10.5) 12/01/16 09:35 Phosphorus 3.6 mg/dL (2.5-4.5) 11/30/16 05:50 Magnesium 2.0 mg/dL (1.7-2.2) 11/30/16 05:50 Total Bilirubin 0.8 mg/dL (0.2-1.3) 12/01/16 09:35 AST 24 U/L (15-59) 12/01/16 09:35 ALT 24 U/L (7-56) 12/01/16 09:35 Alkaline Phosphatase 60 U/L (38-133) 12/01/16 09:35 Total Protein 6.3 g/dL (5.8-8.3) 12/01/16 09:35 Albumin 3.4 g/dL (3.0-4.8) 12/01/16 09:35 Globulin 2.8 gm/dL 12/01/16 09:35 Albumin/Globulin Ratio 1.2 (1.1-1.8) 12/01/16 09:35 Amylase 103 U/L (35-125) 11/29/16 13:00 Lipase 306 U/L (23-300) H 11/29/16 13:00 Prostate Specific Ag 3.2 ng/mL (0.00-2.5) H 11/30/16 05:50 Venous Blood Potassium 3.7 mmol/L (3.6-5.2) 11/29/16 14:00 Urine Color Yellow (YELLOW) 11/29/16 15:30 Urine Appearance Clear (CLEAR) 11/29/16 15:30 Urine pH 6.5 (4.7-8.0) 11/29/16 15:30 Ur Specific [place] 1.010 (1.005-1.035) 11/29/16 15:30 Urine Protein Negative mg/dL (<30 mg/dL) 11/29/16 15:30 Urine Glucose (UA) Negative mg/dL (NEGATIVE) 11/29/16 15:30 Urine Ketones Negative mg/dL (NEGATIVE) 11/29/16 15:30 Urine Blood Trace-lysed (NEGATIVE) H 11/29/16 15:30 Urine Nitrate Negative (NEGATIVE) 11/29/16 15:30 Urine Bilirubin Negative (NEGATIVE) 11/29/16 15:30 Urine Urobilinogen 0.2 E.U./dL (<1 E.U./dL) 11/29/16 15:30 Ur Leukocyte Esterase Negative [place]/uL (NEGATIVE) 11/29/16 15:30 Urine RBC 1 - 3 /hpf (0-2) 11/29/16 15:30 Urine WBC 0 - 2 /hpf (0-6) 11/29/16 15:30 Ur Epithelial Cells None /hpf (0-5) 11/29/16 15:30 Urine Bacteria Small (NEG) 11/29/16 15:30 Attending/Attestation - Attestation I have personally seen and examined this patient.: Yes I have fully participated in the care of the patient.: Yes I have reviewed all pertinent clinical information, including history, physical exam and plan: Yes Notes (Text): 12/05/16 11:12 Patient was seen and examined with lead medical technologist. Agreed with resident assessment and plan. 36 year old male with past medical history of recently treated colitis presents with abdominal pain. CT abd/pelvis shows enteritis,diarrhea has improved.Abdominal pain is resolved.Patient is tolerating diet. He will be discharged home and will follow up with GI, need out patient Colonoscopy for evaluation of colitis in recent past. Management plan was discussed in detail with patient Education was provided.
== END 2016-12-01 17:12 | disposition home or self-care (01) ==
LOC: ED 12:35 → ERH 17:03 → 5RNO 18:47
PROVIDERS: ADMIT Internal Medicine; ATTEND Internal Medicine
DX: K52.9 Noninfective gastroenteritis and colitis, unspecified (principal); E87.6 Hypokalemia
CPT/HCPCS: 36415; 74177; 80053; 81001; 82150; 82803; 82948; 83690; 83735; 84100; 84153; 85025; 85730; 87040; 96361; 96365; 96366; 96367; 96375; 96376; 99284; C9113; G0378; J0696; J1644; J2270; J2405; J7040; Q9967